=== PATIENT | female | born 1960 | race Caucasian/White ===

== ENCOUNTER 2019-07-22 06:00 | Outpatient (RCR) | payer MEDICARE, MEDICAID, SELFPAY | END 2019-08-21 00:01 | LOC: SOT 06:00 | PROVIDERS: Family Provider Internal Medicine; Visit Provider Specialist | DX: M06.9 Rheumatoid arthritis, unspecified (principal); S62.623D Displaced fracture of middle phalanx of left middle finger, subsequent encounter for fracture with routine healing; X58.XXXD Exposure to other specified factors, subsequent encounter | CPT/HCPCS: 97110 ×3; 97140 ×3 ==

== ENCOUNTER 2019-08-22 06:00 | Outpatient (RCR) | payer MEDICARE, MEDICAID, SELFPAY | END 2019-09-12 23:00 | disposition home or self-care (01) | LOC: SOT 06:00 | PROVIDERS: Family Provider Internal Medicine; PCP Internal Medicine; Visit Provider Specialist | DX: S62.603D Fracture of unspecified phalanx of left middle finger, subsequent encounter for fracture with routine healing (principal); X58.XXXD Exposure to other specified factors, subsequent encounter | CPT/HCPCS: 97110; 97140 ==

== ENCOUNTER → 2019-09-26 10:37 | Outpatient (BNVA) | payer MEDICARE, MEDICAID, SELFPAY | PROVIDERS: Family Provider Internal Medicine; PCP Internal Medicine; Referring Provider Internal Medicine Rheumatology; Visit Provider Internal Medicine Rheumatology | DX: M05.741 Rheumatoid arthritis with rheumatoid factor of right hand without organ or systems involvement (principal); Z79.899 Other long term (current) drug therapy; Z11.59 Encounter for screening for other viral diseases; M05.742 Rheumatoid arthritis with rheumatoid factor of left hand without organ or systems involvement | CPT/HCPCS: 36415; 99214 ==

== ENCOUNTER 2019-09-26 13:23 | Outpatient (CLI) | payer MEDICARE, MEDICAID, SELFPAY ==
--- NOTE | 2019-09-26 13:43 | XR_ITS ---
WS: [id number] FOOT LEFT TECHNIQUE: 3 views of the left foot CLINICAL INFORMATION: arthritis COMPARISON: None. FINDINGS: No evidence of acute fracture or dislocation. Normal tarsal metatarsal alignment. Normal calcaneus. N ormal visualized talar dome. Osteopenia. IP joint narrowing with hammertoe deformities. Small periart icular erosion first proximal phalanx XR/XR foot LT min 3V* [id number] IMPRESSION: 1. Osteopenia with IP joint narrowing and hammertoe deformities. 2. Small periarticular erosion first proximal phalanx. 3. No other significant findings.
--- NOTE | 2019-09-26 13:43 | XR_ITS ---
WS: [id number] FOOT RIGHT TECHNIQUE: 3 views of the right foot CLINICAL INFORMATION: arthritis COMPARISON: None. FINDINGS: Osteopenia. IP joint narrowing. No significant erosive changes. Normal metatarsals. Normal tarsal metatarsal alignment. No acute fractures. XR/XR foot RT min 3V* [id number] IMPRESSION: Mild osteopenia and IP joint narrowing. No significant erosive changes.
--- NOTE | 2019-09-26 13:43 | XR_ITS ---
WS: [id number] HAND RIGHT TECHNIQUE: 3 views of the right hand CLINICAL INFORMATION: arthritis COMPARISON: None. FINDINGS: Normal metacarpals. Normal MCP joint. Metacarpal heads are normal in appearance. Mild IP joint narrow ing with a few periarticular erosions. No evidence of acute fracture or dislocation. Radiocarpal joint: Mild narrowing Carpal bones: Normal. XR/XR hand RT min 3V* [id number] IMPRESSION: Mild IP joint narrowing with a few periarticular erosions.
== END 2019-09-26 13:24 | disposition home or self-care (01) ==
LOC: WPI 13:32
PROVIDERS: Family Provider Internal Medicine; PCP Internal Medicine; Visit Provider Internal Medicine Rheumatology
DX: M19.90 Unspecified osteoarthritis, unspecified site (principal); M85.841 Other specified disorders of bone density and structure, right hand; M85.871 Other specified disorders of bone density and structure, right ankle and foot; M85.872 Other specified disorders of bone density and structure, left ankle and foot; M05.741 Rheumatoid arthritis with rheumatoid factor of right hand without organ or systems involvement; M05.742 Rheumatoid arthritis with rheumatoid factor of left hand without organ or systems involvement; M05.9 Rheumatoid arthritis with rheumatoid factor, unspecified; Z11.59 Encounter for screening for other viral diseases; Z71.89 Other specified counseling; Z79.899 Other long term (current) drug therapy
CPT/HCPCS: 73130; 73630; 82306; 84450; 85651; 86140; 86704; 86803

== ENCOUNTER → 2019-11-15 10:57 | Outpatient (BNVA) | payer MEDICARE, MEDICAID, SELFPAY | PROVIDERS: Family Provider Internal Medicine; PCP Internal Medicine; Visit Provider Internal Medicine Rheumatology | DX: M05.9 Rheumatoid arthritis with rheumatoid factor, unspecified (principal); Z79.899 Other long term (current) drug therapy; Z11.59 Encounter for screening for other viral diseases | CPT/HCPCS: 36415; 80076; 82565; 85025; 85651; 86140 ==

== ENCOUNTER → 2019-11-15 10:58 | Outpatient (BNVA) | payer MEDICARE, MEDICAID, SELFPAY | PROVIDERS: Family Provider Internal Medicine; PCP Internal Medicine; Visit Provider Internal Medicine Rheumatology | DX: M05.9 Rheumatoid arthritis with rheumatoid factor, unspecified (principal); Z79.899 Other long term (current) drug therapy; Z11.59 Encounter for screening for other viral diseases | CPT/HCPCS: 85025 ==

== ENCOUNTER 2020-02-04 13:45 | Outpatient (CLI) | payer MEDICARE, MEDICAID, SELFPAY ==
[2020-02-04 14:07] VITALS: BP 116/74; PULSE 93; RESP 18; TEMP 36.6; O2SAT 98
[2020-02-04 15:35] VITALS: BP 120/74; PULSE 92; RESP 16; TEMP 36.6; O2SAT 97
== END 2020-02-04 13:46 | disposition home or self-care (01) ==
LOC: RHEOACUTE 13:48
PROVIDERS: Family Provider Internal Medicine; PCP Internal Medicine; Visit Provider Internal Medicine Rheumatology
DX: Z79.899 Other long term (current) drug therapy (principal); M05.741 Rheumatoid arthritis with rheumatoid factor of right hand without organ or systems involvement; M05.742 Rheumatoid arthritis with rheumatoid factor of left hand without organ or systems involvement
CPT/HCPCS: 36415; 80076; 82565; 85025; 85651; 86140; 96365; J1602

== ENCOUNTER 2020-02-12 09:12 | Outpatient (CLI) | payer MEDICARE, MEDICAID, SELFPAY ==
--- NOTE | 2020-02-12 09:15 | CT_ITS ---
WS: [id number] CT LUNG CANCER SCREENING DLP: 86.7 mGy.cm DIvol: 2.43 mGy CLINICAL INFORMATION SCREENING VISIT: Baseline COMPARISON: None available. FINDINGS Diagnostic quality: Satisfactory Comments: None. Lung Nodules: No pulmonary nodules, groundglass attenuation or endobronchial lesions are identified. Lungs: Marked pulmonary hyperexpansion from emphysema. There is very minimal peripheral interstitial thickening. No pleural effusion. Heart: Normal size heart with no pericardial effusion. Other findings: Mild atherosclerosis thoracic aorta. T7 Schmorl's node. CT/CT lung screening [id number] IMPRESSION: LUNG-RADS: 1-Negative FOLLOW UP: 12 Month: Continue annual screening with LDCT
== END 2020-02-12 09:13 | disposition home or self-care (01) ==
LOC: CT 09:13
PROVIDERS: PCP Internal Medicine; Visit Provider Internal Medicine
DX: Z12.2 Encounter for screening for malignant neoplasm of respiratory organs (principal); F17.210 Nicotine dependence, cigarettes, uncomplicated
CPT/HCPCS: G0297

== ENCOUNTER 2020-03-04 09:54 | Outpatient (CLI) | payer MEDICARE, MEDICAID, SELFPAY ==
[2020-03-04 10:35] VITALS: BP 115/84; PULSE 76; RESP 16; TEMP 36.7; O2SAT 98
[2020-03-04 11:57] VITALS: BP 126/84; PULSE 75; O2SAT 97
== END 2020-03-04 09:55 | disposition home or self-care (01) ==
LOC: RHEOACUTE 09:55
PROVIDERS: PCP Internal Medicine; Visit Provider Internal Medicine Rheumatology
DX: M05.79 Rheumatoid arthritis with rheumatoid factor of multiple sites without organ or systems involvement (principal)
CPT/HCPCS: 96365; J1602

== ENCOUNTER → 2020-03-26 12:48 | Outpatient (BNVA) | payer MEDICARE, MEDICAID, SELFPAY | PROVIDERS: PCP Internal Medicine; Visit Provider Internal Medicine Rheumatology | DX: M05.79 Rheumatoid arthritis with rheumatoid factor of multiple sites without organ or systems involvement (principal); Z79.899 Other long term (current) drug therapy; F17.210 Nicotine dependence, cigarettes, uncomplicated | CPT/HCPCS: 36415; 80076; 82565; 85025; 85651; 86140; 99214 ==

== ENCOUNTER → 2020-06-06 10:33 | Outpatient (BNVA) | payer MEDICARE, MEDICAID, SELFPAY | PROVIDERS: PCP Internal Medicine; Visit Provider Internal Medicine | DX: Z11.59 Encounter for screening for other viral diseases (principal) | CPT/HCPCS: 87635 ==

== ENCOUNTER 2020-06-11 11:00 | Outpatient (CLI) | payer MEDICARE, MEDICAID, SELFPAY ==
--- NOTE | 2020-06-11 13:10 | PFTS_ITS ---
Date of Study:06/11/20 Date of Dictation: 06/12/2020 MECHANICS: Forced vital capacity (FVC) is normal Forced expiratory volume in one second (FEV1) is normal FEV1/FVC is normal FEF 25-75% is reduced 37% suggestive of small airway obstruction No significant response to bronchodilator FLOW VOLUME LOOP: Scooping of expiratory limb suggestive of small airway obstruction . LUNG VOLUMES: Not measured DIFFUSING CAPACITY FOR CARBON MONOXIDE: Not measured . INTERPRETATION: The spirometry performed is consistent with airway obstruction with no significant response to bronchodilators. However this does not preclude bronchodilator use if clinically indicated. Correlate clinically MTDD
== END 2020-06-11 11:01 | disposition home or self-care (01) ==
LOC: RT 11:03
PROVIDERS: PCP Internal Medicine; Visit Provider Internal Medicine
DX: J44.9 Chronic obstructive pulmonary disease, unspecified (principal)
CPT/HCPCS: 94060; J7611

== ENCOUNTER → 2020-06-17 14:39 | Outpatient (BNVA) | payer MEDICARE, MEDICAID, SELFPAY | PROVIDERS: PCP Internal Medicine; Visit Provider Internal Medicine Rheumatology | DX: M05.79 Rheumatoid arthritis with rheumatoid factor of multiple sites without organ or systems involvement (principal); Z79.899 Other long term (current) drug therapy; Z78.0 Asymptomatic menopausal state; F17.210 Nicotine dependence, cigarettes, uncomplicated; Z79.52 Long term (current) use of systemic steroids; Z13.820 Encounter for screening for osteoporosis | CPT/HCPCS: 99214 ==

== ENCOUNTER 2020-10-15 14:57 | Outpatient (CLI) | payer MEDICARE, MEDICAID, SELFPAY ==
--- NOTE | 2020-10-15 15:03 | XR_ITS ---
WS: [id number] DEXA (DUAL ENERGY X-RAY ABSORPTIOMETRY) Bone mineral density was performed using a Personally machine. HISTORY: Asymptomatic POSTMENOPAUSAL STATUS COMPARISON: None available. Lumbar spine BMD (L1-L4): 0.770 g/cm2 T score: -3.4 Z score: -2.4 Total hip BMD: Left: 0.769 g/cm2. T score: -1.9 Z score: -1.1 Right: 0.757 g/cm2. T score: -2.0 Z score: -1.2 10 year probability of a major osteoporotic fracture is 24%. XR/XR DEXA axial skeleton* [id number] IMPRESSION: OSTEOPOROSIS based upon the WHO classification for females.
== END 2020-10-15 14:58 | disposition home or self-care (01) ==
PROVIDERS: PCP Internal Medicine; Visit Provider Internal Medicine
DX: Z78.0 Asymptomatic menopausal state (principal); M81.0 Age-related osteoporosis without current pathological fracture
CPT/HCPCS: 77080

== ENCOUNTER → 2020-11-03 13:31 | Outpatient (BNVA) | payer MEDICARE, MEDICAID, SELFPAY | PROVIDERS: PCP Internal Medicine; Visit Provider Internal Medicine Rheumatology | DX: M05.79 Rheumatoid arthritis with rheumatoid factor of multiple sites without organ or systems involvement (principal); Z79.899 Other long term (current) drug therapy; M81.0 Age-related osteoporosis without current pathological fracture; F17.210 Nicotine dependence, cigarettes, uncomplicated | CPT/HCPCS: 99214 ==

== ENCOUNTER 2020-12-05 20:30 | Emergency (ER) | payer MEDICARE, MEDICAID, SELFPAY ==
[2020-12-05 20:34] VITALS: BP 121/89; PULSE 104; RESP 18; TEMP 36.6; O2SAT 97; BMI 24.2
--- NOTE | 2020-12-05 20:40 | ED_ITS ---
HPI - GI Bleed General: Chief complaint: GI Bleed Stated complaint: rectal bleeding Time Seen by Provider: 12/05/20 20:31 Source: patient and EMS Mode of arrival: EMS Limitations: no limitations History of Present Illness: HPI Narrative: 60-year-old female states that over the last 2 to 3 hours been having abdominal cramping and feeling quite nauseous. States she felt her legs give to vomit. She states that she did go to the bathroom and had a mucousy-like stool that had some bright red blood in it. States she continued to have cramping her abdomen feeling like she is in the vomit. She denies any lightheadedness. Denies any fever. Denies any worsening improving factors. She denies any pain just a cramping feeling. Associated symptoms: Reports nausea; Denies abdominal pain, chills, easy bruising, fever(s), headache(s), rash or vomiting Review of Systems Const: Denies: fever(s), chills, body aches or change in appetite Eyes: Denies: blurry vision or eye discomfort ENMT: Denies: throat pain or dental pain Card: Denies: chest pain Resp: Denies: dyspnea GI: Reports: nausea and hematochezia; Denies: abdominal pain, vomiting or diarrhea : Denies: dysuria Musc: Denies: neck pain or back pain Skin/Breast: Denies: rash Neuro: Denies: headache(s) Psych: Denies: depression Alejandro/Lymph: Denies: easy bruising All/Imm: Denies: urticaria PFSH ED PFSH: Medical History (Updated 12/05/20 @ 23:11 by Daren Harrison MD) Chronic intermittent steroid use Encounter for osteoporosis screening in asymptomatic postmenopausal patient Encounter for screening for other viral diseases High risk medication use Immunization counseling Post-menopausal osteoporosis Rheumatoid arthritis with rheumatoid factor Seropositive rheumatoid arthritis of multiple sites Shortness of breath Surgical History H/O arthroplasty H/O tubal ligation H/O: hysterectomy History of repair of hiatal hernia Hx of cholecystectomy Family History Other CAD (coronary artery disease) Diabetes Hypertension Lung disease Rheumatoid arthritis Stroke Denies family history of Systemic lupus erythematosus (SLE) in adult Cancer Social History Smoking and tobacco status: current every day smoker cigarettes Packs smoked per day: 0.5 Alcohol intake: unknown Lives independently: Yes Marital status: Current occupational status: disabled History of recent travel: No (last ask 05/03/19) Physical Exam Const: COMMON NORMALS: no acute distress, patient oriented x3 and healthy appearing HENMT: COMMON NORMALS: normocephalic and atraumatic HEAD & SCALP: normocephalic and atraumatic Eye: COMMON NORMALS: Equal, round and reactive pupils present and EOMs intact bilaterally PUPIL: Yes Equal, round and reactive pupils present Neck/C-Spine: COMMON NORMALS: full ROM and supple Chest: COMMONS NORMALS: normal inspection of the chest and normal palpation of entire chest wall Resp: COMMON NORMALS: normal respiratory effort, No retractions, No use of accessory muscles and clear to auscultation bilaterally AUSCULTATION: clear to auscultation bilaterally Cardio: COMMON NORMALS: regular rate, regular rhythm and No murmurs present (Cardio) RATE: regular rate RHYTHM: regular rhythm GI: COMMON NORMALS: Normal to inspection, nondistended, normoactive bowel sounds present, Soft to palpation, non-tender and no masses PALPATION: Yes Soft to palpation Extremity: COMMON NORMALS: normal to inspection and full ROM Neuro: COMMON NORMALS: patient oriented x3, moves all extremities and no focal motor deficits Psych: COMMON NORMALS: mental status grossly normal, Normal thought process present and cooperative THOUGHT PROCESS: Normal thought process present Skin: COMMON NORMALS: no rashes or lesions noted and no wounds GENERAL SKIN EXAM: no rashes or lesions noted Course Vital Signs: Vital signs: Vital Signs Temperature 97.9 F 12/05/20 20:34 Pulse Rate 104 H 12/05/20 20:34 Respiratory Rate 18 12/05/20 20:34 Blood Pressure 121/89 12/05/20 20:34 Pulse Oximetry 97 12/05/20 20:34 MDM - GI Bleed MDM Narrative: Medical decision making narrative: Patient presents here with a lower GI bleed. Patient's rectal exam here showed a very small amount of blood. Her hemoglobin here is normal. She had no more bloody bowel movements. Her CT scan showed no acute findings. She is stable for discharge will prescribe her medicine for nausea. She is to follow-up with surgery outpatient return to ER if worsening. She is return if she has any more large bloody bowel movements. She understands agrees this plan. Lab Data: Labs: Lab Results 12/05/20 12/05/20 12/05/20 Range/Units 21:15 21:15 21:15 WBC 7.1 (4.0-10.0) 10^3/ uL RBC 3.68 L (4.1-5.3) 10^6/u L Hgb 12.3 (11.5-15.3) g/dL Hct 36.9 L (37.0-47.0) % MCV 100.3 H (81-99) fL MCH 33.4 (28.0-34.0) pg MCHC 33.3 (30.0-36.0) g/dL RDW 12.8 (12.1-15.1) % Plt Count 314 (130-400) 10^3/c mm MPV 10.1 (7.4-10.4) fL Neut % (Auto) 47.1 % Lymph % (Auto) 45.0 % Wilkes % (Auto) 6.8 % Eos % (Auto) 0.4 % Baso % (Auto) 0.6 % Neut # (Auto) 3.32 (1.8-7.7) 10^3/u L Lymph # (Auto) 3.2 (0.8-4.8) 10^3/u L Wilkes # (Auto) 0.5 (0.2-0.9) 10^3/u L Eos # (Auto) 0.0 (0.0-0.8) 10^3/u L Baso # (Auto) 0.0 (0.0-0.1) 10^3/u L Nucleated RBC % (a uto) 0 % Nucleated RBCs # 0.0 /100WBC PT 12.80 (12.1-14.9) SECO NDS INR 0.94 (0.8-1.2) Sodium 140 (136-145) mmol/L Potassium 3.8 (3.5-5.1) mmol/L Chloride 104 (98-107) mmol/L Carbon Dioxide 25 (22-29) mmol/L Anion Gap 14.8 (5-19) BUN 10 (6-20) mg/dL Creatinine 0.8 (0.5-0.9) mg/dL GFR Calculation 73.7 L (90-130) mL/min Glucose 125 H (65-115) mg/dL Calculated Osmolal ity 291 (285-295) mOsm/k g Calcium 8.5 (8.5-10.5) mg/dL Total Bilirubin 0.3 (0.15-1.2) mg/dL AST 28 (0-32) U/L ALT 19 (0-33) U/L Alkaline Phosphata se 99 (35-105) IU/L Total Protein 6.8 (6.6-8.7) g/dL Albumin 4.2 (3.5-5.2) g/dL Globulin 2.6 (1.3-4.6) g/dL Lipase 30 (13-60) U/L Imaging Data^: CT Abd/Pel: Radiologist's impression: [place] [address] CT Scan Report Signed Patient: Tari Mendoza Unit #: [id number] : 1960 Age/Sex: 60 / F ADM Date: 12/05/20 Loc: ER Room/Bed: Attending Dr: Ordering Provider/Ordering MD: Daren Harrison MD Date of Service: 12/05/20 Procedure(s): CT abdomen pelvis w con* [id number] Accession Number(s): [id number] Report Number: [id number] PROCEDURE INFORMATION: Exam: CT Abdomen And Pelvis With Contrast Exam date and time: 12/05/2020 10:21 PM Age: 60 years old Clinical indication: Nausea and vomiting and other: Rectal bleed; Prior surgery; Surgery type: Hiatal hernia. Gb. Tubal. Hysterectomy. ; Patient HX: N/v/d with rectal bleed. ; Additional info: Abd pain TECHNIQUE: Imaging protocol: Computed tomography of the abdomen and pelvis with contrast. Radiation optimization: All CT scans at this facility use at least one of these dose optimization techniques: automated exposure control; mA and/or kV adjustment per patient size (includes targeted exams where dose is matched to clinical indication); or iterative reconstruction. Contrast material: OMNI 300; Contrast volume: 95 ml; Contrast route: INTRAVENOUS (IV); COMPARISON: CR Hip 2-3v LEFT wwo Pelv* [id number] 06/15/2017 1:27 PM RADIATION DOSE METRICS: Total DLP (mGy-cm): 1252.73 FINDINGS: Mediastinal space: Status post hiatal hernia repair. Liver: Normal. No mass. Gallbladder and bile ducts: Status post cholecystectomy. There is mild intra and extrahepatic biliary dilatation. Common bile duct measures 8.5 mm near the pancreatic head. It tapers to normal caliber near the ampulla. Pancreas: Normal. No ductal dilation. Spleen: Normal. No splenomegaly. Adrenal glands: Normal. No mass. Kidneys and ureters: Normal. No hydronephrosis. Stomach and bowel: Few diverticula are seen on the sigmoid colon. There are no inflammatory changes seen to suggest diverticulitis. There is focal narrowing seen at the level of the rectosigmoid junction. This may represent physiologic narrowing although fixed narrowing cannot be entirely excluded. Sigmoidoscopy is suggested as follow-up. Appendix: No evidence of appendicitis. Intraperitoneal space: Unremarkable. No free air. No significant fluid collection. Vasculature: Unremarkable. No abdominal aortic aneurysm. Lymph nodes: Unremarkable. No enlarged lymph nodes. Urinary bladder: Unremarkable as visualized. Reproductive: Status post hysterectomy. Bones/joints: Unremarkable. No acute fracture. Soft tissues: Unremarkable. CT/CT abdomen pelvis w con* [id number] IMPRESSION: 1. There are no acute abdominal findings. 2. Mild diverticulosis of the sigmoid colon. 3. There is focal narrowing at the rectosigmoid junction possibly representing physiologic narrowing although a fixed narrowing cannot be entirely excluded. Sigmoidoscopy is suggested as follow-up. 4. Mild intra and extrahepatic biliary dilatation possibly compensatory to cholecystectomy. Discharge Plan Discharge Patient Disposition: Home Clinical Impression: Acute lower GI bleeding Condition: Stable Prescriptions: New ondansetron 4 mg tablet,disintegrating 4 mg PO Q6H PRN (Reason: nausea and vomiting) Qty: 14 RF: 0 Levsin 0.125 mg tablet 0.125 mg PO Q12H PRN (Reason: dyspepsia) Qty: 14 RF: 0 No Action prednisone 10 mg tablet 10 mg PO BID Qty: 20 RF: 2 alendronate [Fosamax] 70 mg tablet 70 mg PO .every week RF: 0 cholecalciferol (vitamin D3) 50 mcg (2,000 unit) tablet 2,000 unit PO DAILY Qty: 30 RF: 3 Rinvoq 15 mg tablet extended release 24 hr 15 mg PO DAILY Qty: 30 RF: 3 pantoprazole 40 mg tablet,delayed release (DR/EC) 40 mg PO DAILY Qty: 30 RF: 3 topiramate 200 mg tablet 100 mg PO BID RF: 0 folic acid 1 mg tablet 1 mg PO DAILY Qty: 30 RF: 2 Probiotic 1 tab PO DAILY RF: 0 Discharge Orders: Discharge ED (Routine); Ordered 12/05/20 Ordered By: Daren Harrison Referrals: Yessica Travis MD [Primary Care Provider] - Pillo Brownlee MD [Physician] - 1-3 days Discharge Diet: Advance as tolerated Discharge Activity: Resume usual activity Patient Instructions: Rectal Bleeding (ED) Coding Level of Care Code ED Computer Education Professor for Chg Fwd Exam Comprehensive
[2020-12-05] MEDS: sodium chloride 0.9% 1,000 ML 999 ML IV (20:54)
[2020-12-05] MEDS: ondansetron 2 mg/ML SDV 2 mL 4 MG IVP (20:55)
[2020-12-05 21:28] LABS: Basophils % 0.6 %; Eosinophils % 0.4 %; Hematocrit 36.9 % (37.0-47.0); Hemoglobin 12.3 g/dL (11.5-15.3); Lymphocytes # 3.2 10^3/uL (0.8-4.8); Mean Corpuscular HGB Conc 33.3 g/dL (30.0-36.0); Mean Corpuscular Hemoglobin 33.4 pg (28.0-34.0); Mean Corpuscular Volume 100.3 fL (81-99); Mean Platelet Volume 10.1 fL (7.4-10.4); Monocytes # 0.5 10^3/uL (0.2-0.9); Monocytes % 6.8 %; Neutrophils # 3.32 10^3/uL (1.8-7.7); Neutrophils % 47.1 %; Nucleated Red Blood Cells % 0 %; Platelet Count 314 10^3/cmm (130-400); Red Blood Count 3.68 10^6/uL (4.1-5.3); Red Cell Distribution Width 12.8 % (12.1-15.1); White Blood Count 7.1 10^3/uL (4.0-10.0)
[2020-12-05 21:37] LABS: INR 0.94 (0.8-1.2)
[2020-12-05 21:49] LABS: Alanine Aminotransferase 19 U/L (0-33); Albumin Level 4.2 g/dL (3.5-5.2); Alkaline Phosphatase 99 IU/L (35-105); Anion Gap 14.8 (5-19); Aspartate Amino Transferase 28 U/L (0-32); Blood Urea Nitrogen 10 mg/dL (6-20); Calcium 8.5 mg/dL (8.5-10.5); Carbon Dioxide 25 mmol/L (22-29); Chloride 104 mmol/L (98-107); Globulin 2.6 g/dL (1.3-4.6); Glomerular Filtration Rate 73.7 mL/min (90-130); Glucose 125 mg/dL (65-115); Lipase 30 U/L (13-60); Osmolality Calculated 291 mOsm/kg (285-295); Potassium 3.8 mmol/L (3.5-5.1); Sodium 140 mmol/L (136-145); Total Bilirubin 0.3 mg/dL (0.15-1.2); Total Protein 6.8 g/dL (6.6-8.7)
--- NOTE | 2020-12-05 21:59 | CTR_ITS ---
PROCEDURE INFORMATION: Exam: CT Abdomen And Pelvis With Contrast Exam date and time: 12/05/2020 10:21 PM Age: 60 years old Clinical indication: Nausea and vomiting and other: Rectal bleed; Prior surgery; Surgery type: Hiatal hernia. Gb. Tubal. Hysterectomy. ; Patient HX: N/v/d with rectal bleed. ; Additional info: Abd pain TECHNIQUE: Imaging protocol: Computed tomography of the abdomen and pelvis with contrast. Radiation optimization: All CT scans at this facility use at least one of these dose optimization techniques: automated exposure control; mA and/or kV adjustment per patient size (includes targeted exams where dose is matched to clinical indication); or iterative reconstruction. Contrast material: OMNI 300; Contrast volume: 95 ml; Contrast route: INTRAVENOUS (IV); COMPARISON: CR Hip 2-3v LEFT wwo Pelv* [id number] 06/15/2017 1:27 PM RADIATION DOSE METRICS: Total DLP (mGy-cm): 1252.73 FINDINGS: Mediastinal space: Status post hiatal hernia repair. Liver: Normal. No mass. Gallbladder and bile ducts: Status post cholecystectomy. There is mild intra and extrahepatic biliary dilatation. Common bile duct measures 8.5 mm near the pancreatic head. It tapers to normal caliber near the ampulla. Pancreas: Normal. No ductal dilation. Spleen: Normal. No splenomegaly. Adrenal glands: Normal. No mass. Kidneys and ureters: Normal. No hydronephrosis. Stomach and bowel: Few diverticula are seen on the sigmoid colon. There are no inflammatory changes seen to suggest diverticulitis. There is focal narrowing seen at the level of the rectosigmoid junction. This may represent physiologic narrowing although fixed narrowing cannot be entirely excluded. Sigmoidoscopy is suggested as follow-up. Appendix: No evidence of appendicitis. Intraperitoneal space: Unremarkable. No free air. No significant fluid collection. Vasculature: Unremarkable. No abdominal aortic aneurysm. Lymph nodes: Unremarkable. No enlarged lymph nodes. Urinary bladder: Unremarkable as visualized. Reproductive: Status post hysterectomy. Bones/joints: Unremarkable. No acute fracture. Soft tissues: Unremarkable. CT/CT abdomen pelvis w con* [id number] IMPRESSION: 1. There are no acute abdominal findings. 2. Mild diverticulosis of the sigmoid colon. 3. There is focal narrowing at the rectosigmoid junction possibly representing physiologic narrowing although a fixed narrowing cannot be entirely excluded. Sigmoidoscopy is suggested as follow-up. 4. Mild intra and extrahepatic biliary dilatation possibly compensatory to cholecystectomy. Radiation Dose CTDIVOL = (mGy): DLP = 1252.73 (mGy-cm)
[2020-12-05] MEDS: morphine 4 mg/mL SDV 1 mL IVP (22:23)
[2020-12-05] MEDS: iohexol 300 mg/mL 100 mL Btl IV (22:40)
[2020-12-05 23:53] VITALS: BP 113/74; PULSE 80; RESP 18; O2SAT 98
--- NOTE | 2020-12-08 16:38 | DCPLANNER ---
plant operations manager had message to schedule a follow up appointment for patient with general surgery. plant operations manager emailed patients information to both Tiffany and Mackenzie at [facility] General Surgery. Patients information will be printed and reviewed. Clinic will call patient with appointment information.
--- NOTE | 2020-12-12 14:10 | DCPLANNER ---
Patient has a follow up appointment scheduled for Tuesday, December 15, 2020 at 9:[address] Ortega at [facility] General Surgery. Clinic will call patient with appointment information.
--- NOTE | 2020-12-16 15:07 | DCPLANNER ---
Patient had a follow up appointment scheduled for 12.15.[address] Brownlee at General Surgery - patient did attend appointment.
== END 2020-12-05 23:53 | disposition home or self-care (01) ==
PROVIDERS: Emergency Provider Emergency Medicine; PCP Internal Medicine
DX: K92.2 Gastrointestinal hemorrhage, unspecified (principal); F17.210 Nicotine dependence, cigarettes, uncomplicated
CPT/HCPCS: 74177; 80053; 83690; 85025; 85610; 96361; 96374; 96375; 99284; J2270; J2405; J7030; Q9967

== ENCOUNTER 2020-12-09 11:21 | Outpatient (CLI) | payer MEDICARE, MEDICAID, SELFPAY ==
--- NOTE | 2020-12-09 11:25 | MR_ITS ---
WS: [id number] MRI HEAD WITH CONTRAST WITH ATTENTION TO THE INTERNAL AUDITORY CANALS TECHNIQUE: Sagittal T1, T2 axial, T2 axial flair, axial susceptibility weighted imaging, axial diffus ion weighted images, and coronal T2 images were obtained. Pre and post T1 axial and post T1 coronal i mages. ADC and FSPGR images. Post gadolinium images with attention to the internal auditory canals. A xial fiesta imaging. CLINICAL INFORMATION: UNSPEC HEARING LOSS LEFT EAR;TINNITUS BILATERAL COMPARISON: MRI 3 018 FINDINGS: No evidence of restricted diffusion to suggest acute ischemia. Mild small vessel changes. Mild parenc hymal volume loss. Small vessel changes in the pinky. Normal posterior fossa. Normal vascular flow voi ds at the skull base. No extra-axial fluid collections. Paranasal sinuses and mastoid air cells are w ell aerated. Cerebellar tonsillar ectopia unchanged since 2018. No hemosiderin on the susceptibly weighted images. Proximal 7th and 8th cranial nerves are normal. Normal trigeminal nerve root entry zones. No evidenc e of enhancing IAC or CP angle mass. Normal cavernous sinuses and Meckel's cave. No abnormal intracra nial enhancement. Normal dural venous sinuses. MR/MR iac's wo/w con* [id number] IMPRESSION: 1. No evidence of restricted diffusion to suggest acute ischemia. 2. Proximal 7th and 8th cranial nerves are normal in appearance. No evidence o f enhancing IAC or CP angle mass. 3. Mild small vessel changes. Mild parenchymal volume loss. 4. Paranasal sinuses and mastoid air cells are well aerated. 5. Normal optic chiasm and pituitary infundibulum.
[2020-12-09] MEDS: gadobenate dimeglumine 20 mL vial IV (12:29)
== END 2020-12-09 11:22 | disposition home or self-care (01) ==
LOC: RADSHAW 11:24
PROVIDERS: PCP Internal Medicine; Visit Provider Otolaryngology
DX: H93.13 Tinnitus, bilateral (principal); H91.92 Unspecified hearing loss, left ear
CPT/HCPCS: 70553; A9577

== ENCOUNTER → 2020-12-31 08:10 | Outpatient (BNVA) | payer MEDICARE, MEDICAID, SELFPAY | PROVIDERS: PCP Internal Medicine; Visit Provider Surgery | DX: K62.5 Hemorrhage of anus and rectum (principal) | CPT/HCPCS: 87635 ==

== ENCOUNTER 2021-01-05 06:27 | Day surgery (SDC) | payer MEDICARE, MEDICAID, SELFPAY ==
[2021-01-01 13:24] VITALS: BMI 23.3
[2021-01-05 06:47] VITALS: BP 118/84; PULSE 100; RESP 18; TEMP 37.1; O2SAT 95
[2021-01-05] MEDS: sodium chloride 0.9% 1,000 ML 30 ML IV (06:48)
--- NOTE | 2021-01-05 06:55 | W.PM.OPSUD ---
Surgery/Procedure H&P Update DATE OF PROCEDURE: January 05, 2021 DATE H&P PERFORMED: 12/15/20 H&P UPDATE INFORMATION: I have reviewed H&P completed within last 30 days, I have examined patient prior to procedure and No changes to prior documentation PREOP DIAGNOSIS: Bleeding per rectum PRIMARY INDICATION FOR PROCEDURE: The same PLANNED PROCEDURE: Operation Date: 01/05/21 07:30 Proposed Procedures p EGD/colon [id number] 24502 K62.5(Not Applicable) - Pillo Brownlee MD s Colonoscopy(Not Applicable) - Pillo Brownlee MD
--- NOTE | 2021-01-05 07:17 | ANES.PREANE2 ---
Pre-Anesthetic Assessment Pre-Anesthetic Assessment: Height/Weight: Height 1.68 m Weight 65.771 kg Temp Pulse Resp BP Pulse Ox 98.8 F 100 18 118/84 95 01/05/21 06:47 01/05/21 06:47 01/05/21 06:47 01/05/21 06:47 01/05/21 06:47 Preop Diagnosis: Bleeding per rectum Proposed Procedure: Operation Date: 01/05/21 07:30 Proposed Procedures p EGD/colon [id number] K62.5(Not Applicable) - Pillo Brownlee MD s Colonoscopy(Not Applicable) - Pillo Brownlee MD Was Beta Maritza taken within 24 hours: N/A Was Clonidine taken within 24 hours: N/A Last intake: Intake Last Liquid Date 01/04/21 Last Liquid Time 23:00 Last Solid Date 01/03/21 Social: Social History: Tobacco and No alcohol Exam: Pre-Anes Outpt Exam: alert, oriented x 3 and regular rate & rhythm Airway: Submandibular: WNL Cervical ROM: WNL MP: 2 Dentition: False Pulmonary: Pulmonary: COPD GI: GI: GERD Musc/skel: Musc/skel: RA Anesthetic Plan: ASA status: 3 Anesthesia: MAC Risk of > 500 ml blood loss (7ml/kg in children): No Meds/Allergies Current Medications: Current Medications Generic Name Dose Route Start Last Admin Trade Name Freq PRN Reason Stop Dose Admin Sodium Chloride 1,000 mls @ 30 ml s/hr 01/05/21 06:45 01/05/21 06:48 Sodium Chloride 0.9% IV 30 mls/hr .Q24H LEROY Administration PFSH Anesthesia PFSH: Medical History Chronic intermittent steroid use Encounter for osteoporosis screening in asymptomatic postmenopausal patient Encounter for screening for other viral diseases High risk medication use Immunization counseling Post-menopausal osteoporosis Rheumatoid arthritis with rheumatoid factor Seropositive rheumatoid arthritis of multiple sites Shortness of breath Surgical History H/O arthroplasty H/O tubal ligation H/O: hysterectomy History of repair of hiatal hernia Hx of cholecystectomy Family History Other CAD (coronary artery disease) Diabetes Hypertension Lung disease Rheumatoid arthritis Stroke Denies family history of Systemic lupus erythematosus (SLE) in adult Cancer Social History Smoking and tobacco status: current every day smoker cigarettes Packs smoked per day: 0.5 Alcohol intake: unknown Lives independently: Yes Marital status: Current occupational status: disabled History of recent travel: No (last ask 05/03/19) Data Anesthesia Cardiac Studies: No Data to Display
[2021-01-05 08:12] VITALS: BP 100/76; PULSE 80; RESP 18; TEMP 36.4; O2SAT 100
[2021-01-05 08:23] VITALS: BP 133/70; PULSE 77; RESP 18; O2SAT 100
--- NOTE | 2021-01-05 09:05 | ANE.PACU2 ---
Inpatient post-anesthesia follow up: Airway intact: Yes Vital signs: Temperature 97.6 F Pulse Rate 77 Respiratory Rate 18 Blood Pressure 133/70 Pulse Oximetry 100 Oxygen Delivery Me thod Room Air Oxygen Flow Rate Fraction of Inspir ed Oxygen Hydration adequate: Yes Mental status: Baseline
[2021-01-06 16:24] LABS: H. Pylori / CLO Test Negative
== END 2021-01-05 08:38 | disposition home or self-care (01) ==
PROVIDERS: PCP Internal Medicine; Visit Provider Surgery
PROC: 0DJ08ZZ Inspection of Upper Intestinal Tract, Via Natural or Artificial Opening Endoscopic (ICD-10-PCS; CPT 43235; principal; 2021-01-05 07:30)
PROC: 0DJD8ZZ Inspection of Lower Intestinal Tract, Via Natural or Artificial Opening Endoscopic (ICD-10-PCS; CPT 45330; 2021-01-05 07:30)
DX: K62.5 Hemorrhage of anus and rectum (principal); K21.00 Gastro-esophageal reflux disease with esophagitis, without bleeding; K29.70 Gastritis, unspecified, without bleeding; J44.9 Chronic obstructive pulmonary disease, unspecified; M06.9 Rheumatoid arthritis, unspecified; F17.210 Nicotine dependence, cigarettes, uncomplicated; Z82.49 Family history of ischemic heart disease and other diseases of the circulatory system; Z83.3 Family history of diabetes mellitus
CPT/HCPCS: 43239; 45330; 87077; 96360; 96361; J2704; J7030

== ENCOUNTER 2021-01-08 09:48 | Outpatient (CLI) | payer MEDICARE, MEDICAID, SELFPAY ==
--- NOTE | 2021-01-08 10:00 | FL_ITS ---
WS: [id number] Barium swallow and esophagram, 01/08/2021 Clinical Data: K29.70 - Gastritis, unspecified, without bleeding Comparison: None. Fluoroscopy time: 1.0 minutes. Findings: The patient swallowed the thick and thin barium, and it flowed through the hypopharynx without hesita tion. No stricture, mass, polyp or erosion was seen. The barium entered the esophagus and there was normal motility throughout. No hiatal hernia, strictur e, polyp, mass, erosion or ulcer was noted. No reflux was present. FL/FL barium swallow [id number] Impression: Normal esophagram.
== END 2021-01-08 09:49 | disposition home or self-care (01) ==
LOC: RADWPI 09:53
PROVIDERS: PCP Internal Medicine; Visit Provider Surgery
DX: K29.70 Gastritis, unspecified, without bleeding (principal)
CPT/HCPCS: 74220

== ENCOUNTER 2021-02-02 08:41 | Outpatient (CLI) | payer MEDICARE, MEDICAID, SELFPAY ==
--- NOTE | 2021-02-02 08:47 | FL_ITS ---
WS: [id number] Exam: FL barium enema w air* [id number] Date/Time of Exam: 02/02/2021 8:51 AM Reason For Exam: K62.5 - Hemorrhage of anus and rectum The colon is freely distensible. No evidence of mass or constricting lesion. There are several scatte red diverticuli in the sigmoid colon and splenic flexure. There was some mild spasm in the sigmoid co vinnie noted during fluoroscopy. The haustral pattern is well maintained. The colon is nondisplaced. Bar ium could not be refluxed into the terminal ileum. FL/FL barium enema w air* [id number] IMPRESSION: 1. Mild diverticulosis and spasm of the sigmoid colon. 2. No sign of colonic mass or constricting lesion.
== END 2021-02-02 08:42 | disposition home or self-care (01) ==
PROVIDERS: PCP Internal Medicine; Visit Provider Surgery
DX: K62.5 Hemorrhage of anus and rectum (principal); K57.30 Diverticulosis of large intestine without perforation or abscess without bleeding
CPT/HCPCS: 74280

== ENCOUNTER 2021-02-16 09:37 | Outpatient (CLI) | payer MEDICARE, MEDICAID, SELFPAY ==
--- NOTE | 2021-02-16 09:45 | CT_ITS ---
WS: [id number] LDCT LUNG CANCER SCREENING TECHNIQUE: Noncontrast CT of the chest with coronal and sagittal reformatted images. CLINICAL INFORMATION: NICOTINE DEPENDENCE COMPARISON: February 12, 2020 DLP: 55.38 mGy.cm DIvol: 1.[address] scans at [facility] use at least one of these dose optimization techniques: automat ed exposure control; mA and/or kV adjustment per patient size (includes targeted exams where dose is matched to clinical indication); or iterative reconstruction. FINDINGS: No suspicious pulmonary parenchymal opacities. Mild chronic emphysematous changes. No mediastinal or hilar lymphadenopathy. Aortic calcification. Adrenal glands are normal. Cholecystectomy clips. CT/CT lung screening [id number] IMPRESSION: LUNG-RADS: 1-Negative FOLLOW UP: 12 Month: Continue annual screening with LDCT
== END 2021-02-16 09:38 | disposition home or self-care (01) ==
PROVIDERS: PCP Internal Medicine; Visit Provider Internal Medicine
DX: Z12.2 Encounter for screening for malignant neoplasm of respiratory organs (principal); F17.218 Nicotine dependence, cigarettes, with other nicotine-induced disorders; I70.0 Atherosclerosis of aorta
CPT/HCPCS: 71271

== ENCOUNTER → 2021-03-05 10:52 | Outpatient (BNVA) | payer MEDICARE, MEDICAID, SELFPAY | PROVIDERS: PCP Internal Medicine; Visit Provider Internal Medicine Rheumatology | DX: M05.79 Rheumatoid arthritis with rheumatoid factor of multiple sites without organ or systems involvement (principal); M81.0 Age-related osteoporosis without current pathological fracture; Z79.899 Other long term (current) drug therapy; F17.210 Nicotine dependence, cigarettes, uncomplicated; Z71.89 Other specified counseling | CPT/HCPCS: 99214 ==

== ENCOUNTER → 2021-06-24 08:55 | Outpatient (BNVA) | payer MEDICARE, MEDICAID, SELFPAY | PROVIDERS: PCP Internal Medicine; Visit Provider Internal Medicine Rheumatology | DX: M05.79 Rheumatoid arthritis with rheumatoid factor of multiple sites without organ or systems involvement (principal); Z79.899 Other long term (current) drug therapy | CPT/HCPCS: 36415; 80076; 82565; 85025; 86140 ==

== ENCOUNTER → 2021-10-26 10:50 | Outpatient (BNVA) | payer MEDICARE, MEDICAID, SELFPAY | PROVIDERS: PCP Internal Medicine; Visit Provider Internal Medicine Rheumatology | DX: M05.79 Rheumatoid arthritis with rheumatoid factor of multiple sites without organ or systems involvement (principal); Z79.899 Other long term (current) drug therapy; M81.0 Age-related osteoporosis without current pathological fracture; Z71.89 Other specified counseling | CPT/HCPCS: 99214 ==

== ENCOUNTER 2022-02-08 11:24 | Outpatient (CLI) | payer MEDICARE, MEDICAID, SELFPAY ==
--- NOTE | 2022-02-08 11:39 | CT_ITS ---
WS: [id number] LDCT LUNG CANCER SCREENING TECHNIQUE: Noncontrast CT of the chest with coronal and sagittal reformatted images. CLINICAL INFORMATION: NICOTINE DEPENDENCE, CIGARETTES COMPARISON: February 16, 2021 DLP: 77.89 mGy.cm DIvol: Mean CTDIvol: 1.60 (mGy) All CT scans at [facility] use at least one of these dose optimization techniques: automat ed exposure control; mA and/or kV adjustment per patient size (includes targeted exams where dose is matched to clinical indication); or iterative reconstruction. FINDINGS: Moderate chronic emphysematous changes. No acute pulmonary infiltrates. No suspicious pulmonary paren chymal opacities. No focal pneumonia or pleural fluid. Mild aortic calcification. No mediastinal or h ilar lymphadenopathy. No axillary lymphadenopathy. Adrenal glands are normal. Cortical scarring LEFT upper pole. Postoperative cholecystectomy. Mild chr onic intrahepatic biliary ductal dilatation unchanged since December 06, [address] le[address] CT/CT lung screening [id number] IMPRESSION: LUNG-RADS: 1-Negative FOLLOW UP: 12 Month: Continue annual screening with LDCT
== END 2022-02-08 11:25 | disposition home or self-care (01) ==
PROVIDERS: PCP Internal Medicine; Visit Provider Internal Medicine
DX: Z12.2 Encounter for screening for malignant neoplasm of respiratory organs (principal); F17.210 Nicotine dependence, cigarettes, uncomplicated
CPT/HCPCS: 71271

== ENCOUNTER → 2022-02-17 10:52 | Outpatient (BNVA) | payer MEDICARE, MEDICAID, SELFPAY | PROVIDERS: PCP Internal Medicine; Visit Provider Internal Medicine Critical Care Medicine | DX: J44.9 Chronic obstructive pulmonary disease, unspecified (principal); F17.210 Nicotine dependence, cigarettes, uncomplicated | CPT/HCPCS: 99213 ==

== ENCOUNTER → 2022-02-24 13:47 | Outpatient (BNVA) | payer MEDICARE, MEDICAID, SELFPAY | PROVIDERS: PCP Internal Medicine; Visit Provider Internal Medicine Rheumatology | DX: M05.741 Rheumatoid arthritis with rheumatoid factor of right hand without organ or systems involvement (principal); M05.742 Rheumatoid arthritis with rheumatoid factor of left hand without organ or systems involvement; Z79.899 Other long term (current) drug therapy; M81.0 Age-related osteoporosis without current pathological fracture; Z71.89 Other specified counseling | CPT/HCPCS: 73630; 99204 ==

== ENCOUNTER → 2022-03-16 13:56 | Outpatient (BNVA) | payer MEDICARE, MEDICAID, SELFPAY | PROVIDERS: PCP Internal Medicine; Referring Provider Internal Medicine; Visit Provider Podiatrist Foot & Ankle Surgery | DX: M92.61 Juvenile osteochondrosis of tarsus, right ankle (principal); M79.671 Pain in right foot | CPT/HCPCS: 99203; 99204 ==

== ENCOUNTER 2022-03-16 15:12 | Outpatient (CLI) | payer MEDICARE, MEDICAID, SELFPAY | END 2022-03-16 15:13 | disposition home or self-care (01) | LOC: SPT 15:13 | PROVIDERS: PCP Internal Medicine; Visit Provider Podiatrist Foot & Ankle Surgery | DX: Z46.89 Encounter for fitting and adjustment of other specified devices (principal); M92.61 Juvenile osteochondrosis of tarsus, right ankle | CPT/HCPCS: 97760; 99203; 99204; L4397 ==

== ENCOUNTER → 2022-04-21 11:01 | Outpatient (BNVA) | payer MEDICARE, MEDICAID, SELFPAY | PROVIDERS: PCP Internal Medicine; Visit Provider Internal Medicine Rheumatology | DX: M05.79 Rheumatoid arthritis with rheumatoid factor of multiple sites without organ or systems involvement (principal); Z79.899 Other long term (current) drug therapy; Z71.89 Other specified counseling; M81.0 Age-related osteoporosis without current pathological fracture | CPT/HCPCS: 99214 ==

== ENCOUNTER → 2022-06-28 14:23 | Outpatient (BNVA) | payer MEDICARE, MEDICAID, SELFPAY | PROVIDERS: PCP Internal Medicine; Visit Provider Podiatrist Foot & Ankle Surgery | DX: M76.61 Achilles tendinitis, right leg (principal); M92.61 Juvenile osteochondrosis of tarsus, right ankle | CPT/HCPCS: 99214 ==

== ENCOUNTER → 2022-06-29 10:10 | Outpatient (BNVA) | payer MEDICARE, MEDICAID, SELFPAY | PROVIDERS: PCP Internal Medicine; Visit Provider Internal Medicine Rheumatology | DX: M05.741 Rheumatoid arthritis with rheumatoid factor of right hand without organ or systems involvement (principal); M05.742 Rheumatoid arthritis with rheumatoid factor of left hand without organ or systems involvement; Z79.899 Other long term (current) drug therapy; Z71.89 Other specified counseling; M81.0 Age-related osteoporosis without current pathological fracture | CPT/HCPCS: 36415; 80076; 82565; 85025; 86140; 99214 ==

== ENCOUNTER → 2022-10-06 10:07 | Outpatient (BNVA) | payer MEDICARE, MEDICAID, SELFPAY | PROVIDERS: PCP Internal Medicine; Visit Provider Internal Medicine Rheumatology | DX: M05.79 Rheumatoid arthritis with rheumatoid factor of multiple sites without organ or systems involvement (principal); Z79.899 Other long term (current) drug therapy; Z71.89 Other specified counseling; M81.0 Age-related osteoporosis without current pathological fracture; Z87.19 Personal history of other diseases of the digestive system; T39.4X5A Adverse effect of antirheumatics, not elsewhere classified, initial encounter; T42.1X5A Adverse effect of iminostilbenes, initial encounter; T45.1X5A Adverse effect of antineoplastic and immunosuppressive drugs, initial encounter | CPT/HCPCS: 99214 ==

== ENCOUNTER → 2022-10-26 15:17 | Outpatient (BNVA) | payer MEDICARE, MEDICAID, SELFPAY | PROVIDERS: PCP Internal Medicine; Visit Provider Podiatrist Foot & Ankle Surgery | DX: M92.61 Juvenile osteochondrosis of tarsus, right ankle (principal); M76.60 Achilles tendinitis, unspecified leg | CPT/HCPCS: 99213 ==

== ENCOUNTER → 2022-12-01 14:08 | Outpatient (BNVA) | payer MEDICARE, MEDICAID, SELFPAY | PROVIDERS: PCP Internal Medicine; Visit Provider Internal Medicine Rheumatology | DX: M05.79 Rheumatoid arthritis with rheumatoid factor of multiple sites without organ or systems involvement (principal); Z79.899 Other long term (current) drug therapy; Z71.89 Other specified counseling | CPT/HCPCS: 71046; 99214 ==

== ENCOUNTER 2022-12-21 07:28 | Outpatient (CLI) | payer MEDICARE, MEDICAID, SELFPAY ==
--- NOTE | 2022-12-21 07:30 | CT_ITS ---
WS: [id number] CT CHEST CT-HIGH RESOLUTION, NONCONTRAST. HISTORY: Interstitial lung disease. History of rheumatoid arthritis. Technique: High-resolution chest CT is performed in inspiration, expiration, supine and prone felicia pepper. All CT scans at [facility] use at least one of these dose optimization techniques: automated exposure control; mA and/or kV adjustment per patient size (includes targeted exams where dose is mat ched to clinical indication); or iterative reconstruction. DLP: 809.01 mGy.cm COMPARISON: Lung CT 02/08/2022 Findings: Pulmonary hyperinflation and emphysema. Very minimal peripheral interstitial thickening in the mid to lower lungs. No mass or nodules. No pleural thickening. Mild bronchiectasis centrally. No honeycombing. No air trapping or mosaic attenuation on the expirato ry imaging. No areas of atelectasis. There are no interstitial opacifications suggestive of connectiv e tissue disease. Mild atherosclerosis aorta. Normal size aorta and pulmonary artery. Normal size heart. No adenopathy. No adrenal mass. Mild anterior wedging of T7. CT/CT chest wo con [id number] Impression: 1. Hyperexpansion and chronic emphysema. 2. No pleural thickening, pleural effusion or pericardial effusion which can b e seen with rheumatoid disease. 3. There is very mild central bronchiectasis. 4. No honeycombing. No air trapping.
== END 2022-12-21 07:29 | disposition home or self-care (01) ==
LOC: RAD 07:31
PROVIDERS: PCP Internal Medicine; Visit Provider Internal Medicine Rheumatology
DX: J84.9 Interstitial pulmonary disease, unspecified (principal); R91.1 Solitary pulmonary nodule
CPT/HCPCS: 71250

== ENCOUNTER → 2022-12-27 08:31 | Outpatient (BNVA) | payer MEDICARE, MEDICAID, SELFPAY | PROVIDERS: PCP Internal Medicine; Visit Provider Internal Medicine Pulmonary Disease | DX: J44.9 Chronic obstructive pulmonary disease, unspecified (principal); M05.79 Rheumatoid arthritis with rheumatoid factor of multiple sites without organ or systems involvement; F17.210 Nicotine dependence, cigarettes, uncomplicated | CPT/HCPCS: 99214 ==

== ENCOUNTER → 2023-01-10 12:40 | Outpatient (BNVA) | payer MEDICARE, MEDICAID, SELFPAY | PROVIDERS: PCP Internal Medicine; Visit Provider Internal Medicine Rheumatology | DX: M05.79 Rheumatoid arthritis with rheumatoid factor of multiple sites without organ or systems involvement (principal); Z79.899 Other long term (current) drug therapy; I31.9 Disease of pericardium, unspecified; R94.39 Abnormal result of other cardiovascular function study; Z71.89 Other specified counseling | CPT/HCPCS: 99214 ==

== ENCOUNTER → 2023-02-14 09:54 | Outpatient (BNVA) | payer MEDICARE, MEDICAID, SELFPAY | PROVIDERS: PCP Internal Medicine; Visit Provider Internal Medicine Cardiovascular Disease | DX: R06.02 Shortness of breath (principal); J44.9 Chronic obstructive pulmonary disease, unspecified; M05.79 Rheumatoid arthritis with rheumatoid factor of multiple sites without organ or systems involvement; F17.200 Nicotine dependence, unspecified, uncomplicated; Z82.49 Family history of ischemic heart disease and other diseases of the circulatory system; F17.210 Nicotine dependence, cigarettes, uncomplicated; R94.31 Abnormal electrocardiogram [ECG] [EKG] | CPT/HCPCS: 93005; 99204 ==

== ENCOUNTER 2023-03-04 10:15 | Outpatient (CLI) | payer MEDICARE, MEDICAID, SELFPAY ==
--- NOTE | 2023-03-04 10:38 | MM_ITS ---
WS: [id number] Bilateral screening 3D tomosynthesis digital mammogram, 03/04/2023 Clinical Data: SCREENING Comparison: None. Findings: The breast parenchymal pattern shows glandular tissue. No spiculated masses or clustered calcificatio ns are seen. There are no secondary signs of carcinoma. MM/[place] [id number] Impression: 1. Negative bilateral mammogram with no prior exam for review. 2. Recommend annual screening mammograms. BIRADS: 1-Negative FOLLOW UP: 1 Year Follow-up The CAD time checker was used.
== END 2023-03-04 10:16 | disposition home or self-care (01) ==
PROVIDERS: PCP Internal Medicine; Visit Provider Internal Medicine
DX: Z12.31 Encounter for screening mammogram for malignant neoplasm of breast (principal)
CPT/HCPCS: 77063; 77067

== ENCOUNTER 2023-03-07 10:16 | Outpatient (CLI) | payer MEDICARE, MEDICAID, SELFPAY ==
--- NOTE | 2023-03-07 10:30 | USCV_ITS ---
Tari Mendoza Age: 62 Gender: F : 1960 Exam Date: 03/07/2023 10:35 Ordering Phys: Monica White MD [email or web address]) Technologist: VERONIQUE Exam Location: [facility] [place] Indication: Shortness of breath BP: 130 / 68 HR: 80 Rhythm: Sinus Technical Quality: Adequate MEASUREMENTS (Male / Female) Normal Values 2D ECHO LV Diastolic Diameter PLAX 3.2 cm 4.2 - 5.9 / 3.9 - 5.3 cm LV Systolic Diameter PLAX 2.1 cm IVS Diastolic Thickness 0.9 cm 0.6 - 1.0 / 0.6 - 0.9 cm IVS Systolic Thickness 1.0 cm LVPW Diastolic Thickness 1.2 cm 0.6 - 1.0 / 0.6 - 0.9 cm LVPW Systolic Thickness 1.2 cm LVOT Diameter 2.0 cm LV Ejection Fraction 2D Teich 63.9 % LV Ejection Fraction MOD 2C 44.0 % LV Ejection Fraction 2C AL 42.6 % LA Diameter 3.9 cm Aorta at Sinotubular Diameter 2.4 cm IVC Diameter 1.8 cm M-MODE Aortic Annulus Diameter 3.0 cm LA Ao Ratio MM 1.2 MV E Point Septal Separation 0.9 cm DOPPLER AV Peak Velocity 127.0 cm/s LVOT Peak Velocity 81.0 cm/s AV Area Cont Eq vti 2.4 cm squared AV Area Cont Eq pk 2.0 cm squared MV Peak Velocity 99.0 cm/s MV Area PHT 6.7 cm squared Mitral E to A Ratio 0.8 MV E' Velocity 48.0 cm/s Mitral E to MV E' Ratio 8.5 Mitral E to LV E' Lateral Ratio 8.0 Mitral E to LV E' Septal Ratio 9.2 TR Peak Velocity 149.0 cm/s TR Peak Gradient 8.9 mmHg TV Peak E Velocity 80.0 cm/s Right Atrial Pressure 3.0 mmHg Pulmonary Artery Systolic Pressu 11.9 mmHg FINDINGS Left Ventricle Normal left ventricular size, systolic function and wall thickness, with no regional wall motion abnormalities. Left ventricular ejection fraction is estimated at 60 %. Normal diastolic function. Right Ventricle Normal right ventricular size and systolic function. Right ventricular systolic pressure 11.9 mmHg. Right Atrium Normal right atrial size. Left Atrium Normal left atrial size. Mitral Valve Structurally normal mitral valve. No mitral valve stenosis. No mitral valve regurgitation. Aortic Valve Aortic valve not well visualized. No aortic valve stenosis. No aortic valve regurgitation. Tricuspid Valve Structurally normal tricuspid valve. No tricuspid valve stenosis. Trace tricuspid valve regurgitation. Pulmonic Valve Pulmonic valve not well visualized. Pericardium No pericardial effusion. Aorta Aorta not well visualized. IVC Normal inferior vena cava. CONCLUSIONS 1. Normal left ventricular size, systolic function and wall thickness, with no regional wall motion abnormalities. Left ventricular ejection fraction is estimated at 60 %. Normal diastolic function. 2. No significant valvular abnormality. 3. No change when compared to study dated 02/23/2019. Monica White MD (Electronically Signed) Final Date: 11 March 2023 23:21 S
== END 2023-03-07 10:17 | disposition home or self-care (01) ==
PROVIDERS: PCP Internal Medicine; Visit Provider Internal Medicine Cardiovascular Disease
DX: R06.02 Shortness of breath (principal)
CPT/HCPCS: 93306

== ENCOUNTER 2023-03-17 08:06 | Outpatient (CLI) | payer MEDICARE, MEDICAID, SELFPAY ==
[2023-03-17 08:16] VITALS: BMI 22.6
--- NOTE | 2023-03-17 08:31 | ECG_ITS ---
[facility] Test Date: 2023-03-17 Pat Name: Tari Mendoza Department: Room: Gender: Female Manager Dental: : 1960 Requested By: Monica White Order Number: [id number] Hand MD: Monica White M.D. Interpretive Statements NAME OF STUDY: EXERCISE SESTAMIBI STRESS TEST INDICATION: Shortness of Breath on exertion Baseline blood pressure of 133/63 mm Hg, heart rate 83 beats per minute and oxygen saturation 96%. EKG showed sinus rhythm, normal axis with normal ST-Ts. The patient exercised for 5 minutes on a standard Musa protocol. Patient attained a maximum heart rate of 154 beats per minute(96% of the maximum predicted heart rate) with a blood pressure at the peak exercise of 178/91 mm Hg saturation of 94%. The EKG at the peak exercise revealed sinus tachycardia with no significant ST-T wave changes. Patient did not have any chest pain or any significant arrhythmis with the exercise During the recovery phase, there were no new changes. Blood pressure at the end of the recovery phase was 144/89 mm Hg with a heart rate of 86 beats per minute and oxygen saturation of 98%. CONCLUSION: 1. Normal EKG response to treadmill exercise. 2. No exercise-induced chest pain or cardiac arrhythmia. 3. Good exercise tolerance, attained a maximum of 7 METs. 4. Baseline normal blood pressure with normal response to exercise. 5. Perfusion scan will be documented separately. Electronically Signed On 03-22-2023 10:53:13 CDT by Monica White M.D. [email or web address] [email or web address] d. [facility]ell [id number]
--- NOTE | 2023-03-17 08:31 | NMCV_ITS ---
NM betty perf SPECT r/s* [id number] Tari Mendoza Age: 62 Gender: F : 1960 Exam Date: 03/17/2023 09:11 Ordering Phys: Monica White MD ([email or web address]) Technologist: MEGHNA Browning Exam Location: [facility] Indications: SHORTNESS OF BREATH, ISCHEMIC HEART DISEASE STRESS TEST Please see separate stress test report in [facility] for full findings IMAGE PROTOCOL Rest/Stress 1 Exercise Day Radiopharmaceutical Dose (mCi) Administration Site Administered by Rest: Tc-99m 10.7 IV MEGHNA Servin Sestamibi Stress:Tc-99m 32.7 IV MEGHNA Servin Sestamibi Rest: 17-Mar-2023 60 Discovery 630 Stress: 17-Mar-2023 30 Discovery 630 Radiopharmaceutical was injected at 90 % maximum heart rate. Images obtained in supine and prone position. SPECT RESULTS Technical Quality: Excellent Raw Data Analysis: Normal Image Corrections: No attenuation or motion correction applied Summed Stress Score: 0 Summed Rest Score: 0 Summed Difference Score: 0 PERFUSION FINDINGS SPECT images demonstrate homogeneous tracer distribution throughout the myocardium. FUNCTIONAL RESULTS (calculated via Gated SPECT) Stress Image LV EF (%): 72 Stress EDV (mL):47 TID: 0.87 Stress ESV (mL):13 FUNCTIONAL FINDINGS: The left ventricle is normal in size. Transient Ischemia Dilatation of 0.87. The left ventricular ejection fraction is normal with a value of 72%. There is normal left ventricular wall thickening. Normal End-diastolic and end-systolic volumes. IMPRESSIONS 1. Myocardial perfusion imaging is normal. 2. Overall left ventricular systolic function is normal without regional wall motion abnormalities, LVEF=72%. 3. EKG portion of the study will be reported separately. 4. Scan indicates low risk for cardiac events. Monica White MD (Electronically Signed) Final Date: 21 March 2023 10:56 S
[2023-03-17 10:02] VITALS: BP 144/89; PULSE 88
== END 2023-03-17 08:07 | disposition home or self-care (01) ==
LOC: CDL 08:07
PROVIDERS: PCP Internal Medicine; Visit Provider Internal Medicine Cardiovascular Disease
DX: R06.02 Shortness of breath (principal)
CPT/HCPCS: 36415; 78452; 93017; A9500

== ENCOUNTER → 2023-04-11 11:19 | Outpatient (BNVA) | payer MEDICARE, MEDICAID, SELFPAY | PROVIDERS: PCP Internal Medicine; Visit Provider Internal Medicine Rheumatology | DX: M05.79 Rheumatoid arthritis with rheumatoid factor of multiple sites without organ or systems involvement (principal); Z79.899 Other long term (current) drug therapy; Z71.89 Other specified counseling; M81.0 Age-related osteoporosis without current pathological fracture | CPT/HCPCS: 36415; 80076; 82565; 85025; 86140; 99214 ==

== ENCOUNTER 2023-05-29 11:17 | Emergency (ER) | payer MEDICARE, MEDICAID, SELFPAY ==
[2023-05-29 11:32] VITALS: BP 111/82; PULSE 101; RESP 17; TEMP 36.1; O2SAT 96; BMI 23.3
--- NOTE | 2023-05-29 11:50 | W.ED.SKABFB ---
HPI - Skin/Abscess/Foreign Bdy General: Chief complaint: Skin/Abscess/Foreign Body Stated complaint: rash everywhere Time Seen by Provider: 05/29/23 11:20 History of Present Illness: vale martins is a 62-year-old female that presents to the emergency department with her son and [id number]-nad. She reports 8-day history of urticaria. Patient states symptoms began abruptly a week ago Tuesday. Patient started on Benadryl but without relief Patient was seen at outside facility and was given a prescription of Vistaril and an injection of steroids. Patient states that she did receive some improvement in the level of pruritus but no change in urticaria. She reports urticaria present to legs, torso, arms, neck, face and scalp History rheumatoid arthritis, COPD and GERD Associated symptoms: Deny chills, fever(s), nausea or vomiting Review of Systems General: Reports: 10 or more systems reviewed and unremarkable except in HPI and below Const: Denies: fever(s) or chills Eyes: Denies: change in vision Card: Denies: chest pain, palpitations, irregular heart rhythm, edema or dyspnea on exertion Resp: Denies: dyspnea GI: Denies: abdominal pain, nausea, vomiting, diarrhea or constipation : Denies: difficulty voiding, dysuria or urinary frequency Musc: Denies: neck pain, back pain or extremity pain Skin/Breast: Reports: rash, pruritus and erythema; Denies: photosensitivity or new lesions Neuro: Denies: headache(s), numbness in extremities, weakness in extremities, sensory changes or lack of coordination Endo: Denies: polyuria, polydipsia or tired all the time Alejandro/Lymph: Denies: easy bruising or easy bleeding PFSH ED PFSH: Medical History Chronic intermittent steroid use Chronic obstructive pulmonary disease Emphysema lung Encounter for osteoporosis screening in asymptomatic postmenopausal patient Encounter for screening for other viral diseases Family history of ischemic heart disease and other diseases of the circulatory system Gastritis High risk medication use History of pericarditis (~2011) History of pre-eclampsia Immunization counseling Osteoarthritis Post-menopausal osteoporosis Rheumatoid arthritis with rheumatoid factor Scoliosis Seropositive rheumatoid arthritis of multiple sites Shortness of breath Surgical History H/O arthroplasty H/O tubal ligation H/O: hysterectomy History of repair of hiatal hernia Hx of cholecystectomy S/P knee surgery Family History Other CAD (coronary artery disease) Diabetes Hypertension Lung disease Rheumatoid arthritis Stroke Social History Smoking and tobacco status: current every day smoker cigarettes Packs smoked per day: 1 Years cigarettes smoked: 36 [ Other cigarette details: started at age 25] Second hand smoke exposure: Yes Smoking risk assessment/counseling performed?: Yes Alcohol intake: never Counseling given: No Substance/Drug Use: never Counseling given: No Lives independently: Yes Household members: none Marital status: Current occupational status: disabled Do you think of yourself as: Straight/Heterosexual Current gender identity: Female Physical Exam Const: COMMON NORMALS: no acute distress, patient oriented x3 and alert GENERAL APPEARANCE: cooperative ORIENTATION/CONSCIOUSNESS: Yes awake, Yes oriented to person, Yes oriented to place and Yes oriented to time HENMT: COMMON NORMALS: normocephalic and atraumatic HEAD & SCALP: normocephalic and atraumatic FACE & SINUS: normal facial exam Eye: COMMON NORMALS: Equal, round and reactive pupils present, EOMs intact bilaterally, conjunctivae normal and no scleral icterus GENERAL EYE: appearance normal, both eyes and all related structures ALIGNMENT: Yes alignment normal PERIORBITAL: periorbital findings normal CONJUNCTIVA: Yes conjunctivae normal PUPIL: Yes Equal, round and reactive pupils present Neck/C-Spine: COMMON NORMALS: full ROM GENERAL: Yes normal visual inspection Lymph: LYMPHATIC: no lymphadenopathy noted Chest: COMMONS NORMALS: normal inspection of the chest Breast/axilla inspection: Yes no chest deformity, asymmetry, normal contours, no nodules, masses, tenderness Resp: COMMON NORMALS: normal respiratory effort, No retractions, No use of accessory muscles and clear to auscultation bilaterally EFFORT & INSPECTION: Yes able to speak in complete sentences and Yes symmetric chest movement AUSCULTATION: clear to auscultation bilaterally Cardio: COMMON NORMALS: regular rate, regular rhythm and Peripheral pulses 2+ throughout RATE: regular rate RHYTHM: regular rhythm PERIPHERAL PULSES: Peripheral pulses 2+ throughout GI: COMMON NORMALS: Normal to inspection, nondistended, normoactive bowel sounds present, Soft to palpation, non-tender and No hepatosplenomegaly present INSPECTION: Yes normal to inspection AUSCULTATION: Yes normoactive bowel sounds PALPATION: Yes Soft to palpation and Yes No hepatosplenomegaly present RECTAL EXAM: deferred Extremity: COMMON NORMALS: normal to inspection GENERAL: Yes normal exam except as noted Neuro: COMMON NORMALS: patient oriented x3 SENSORIUM/ORIENTATION: Yes alert, Yes oriented to person, Yes oriented to place and Yes oriented to time CRANIAL NERVES: Yes CN normal except as noted Psych: COMMON NORMALS: mental status grossly normal, Normal thought process present, cooperative, activity/motor behavior normal, denies homicidal ideation and denies suicidal ideation THOUGHT PROCESS: Normal thought process present Skin: COMMON NORMALS: no wounds and turgor normal SKIN IMAGES (FEMALE): 1. 2. 3. 4. 5. 6. 7. 8. 9. 10. GENERAL SKIN EXAM: turgor normal RASHES: rashes noted (diffuse erythematous and pruritic urticaria ) Course Vital Signs: Vital signs: Vital Signs Temperature 97.0 F L 05/29/23 11:32 Pulse Rate 101 H 05/29/23 11:32 Respiratory Rate 17 05/29/23 11:32 Blood Pressure 111/82 05/29/23 11:32 Pulse Oximetry 96 05/29/23 11:32 Oxygen Delivery Me thod Room Air 05/29/23 11:32 MDM - Skin/Abscess/Foreign Bdy Medicial Decision Making Patient was seen in the emergency department today for urticaria. Patient has been seen at 2 other facilities in the last 8 days. No identifiable cause She has trialed Vistaril as well as Benadryl and steroids. Steroids seem to be the only thing that helped. Patient was treated here in the emergency department with Solu-Medrol, famotidine, cetirizine, and Benadryl. While the rash is still present it has improved and the itching has ceased We have set up a referral case management to assist in getting the patient in with an department mgr. Patient is to return here as needed for new concerning or worsening symptoms but otherwise follow-up with primary care No radiology studies performed this visit Discharge Plan Discharge Patient Disposition: Home Clinical Impression: Urticaria Condition: Stable Prescriptions: New prednisone 50 mg tablet 50 mg PO DAILY 5 Days Qty: 5 0RF No Action topiramate [Topamax] 50 mg tablet 200 mg PO DAILY Rinvoq 15 mg tablet extended release 24 hr 15 mg PO DAILY Qty: 30 3RF cholecalciferol (vitamin D3) 50 mcg (2,000 unit) tablet 2,000 unit PO DAILY Qty: 30 3RF pantoprazole 40 mg tablet,delayed release (DR/EC) See Rx Instructions .ROUTE .COMPLEX Qty: 30 3RF Dose Instruction: TAKE 1 TABLET BY MOUTH EVERY DAY Rx Instructions: TAKE 1 TABLET BY MOUTH EVERY DAY prednisone 20 mg tablet See Rx Instructions PO .COMPLEX PRN (Reason: joint pain flare) Qty: 30 1RF Rx Instructions: take 2 tab daily for 7 days as needed for arthritis flare PO PRN; prednisone 5 mg tablet 10 mg PO DAILY PRN (Reason: flare) [id number] 50 mg-25 mg- 75 mg-1.5 mg capsule PO Stiolto Respimat 2.5-2.5 mcg/actuation mist 2 puff inhalation DAILY Qty: 4 3RF albuterol sulfate 90 mcg/actuation HFA aerosol inhaler 90 mcg INHALATION DAILY Discharge Orders: Discharge ED (Routine); Ordered 05/29/23 Ordered By: Leon Reyes McTsherry Referrals: Yessica Travis MD [Primary Care Provider] - Discharge Diet: Advance as tolerated Discharge Activity: Resume usual activity Patient Instructions: Urticaria (ED), Pain Management Activity Restrictions/Additional Instructions: Zyrtec in the morning Benadryl or Vistaril throughout the day as needed for hives and itching Can also take famotidine which is [id number] or pantoprazole which you are already prescribed. You would take this daily Also giving you steroids 50 mg they are going to take once a day for 5 days Your symptoms are not going to completely go away. They will subside over time. I have sent a referral for case management to assist with an department mgr You need to follow-up with primary care and return here as needed for new concerning or worsening symptoms Coding Level of Care Code ED Registered Nurse Bone Marrow Transplant for Estiven Faust
[2023-05-29] MEDS: cetirizine 10 mg Tablet PO (12:07)
[2023-05-29] MEDS: famotidine 20 mg/2 mL INJ IVP (12:08)
[2023-05-29] MEDS: diphenhydrAMINE 50 mg/mL SDV 1mL 25 MG IVP (12:11)
[2023-05-29] MEDS: methylPREDNISolone sod succ 125 MG in water for injection-sterile 2 ML 24 MG IVP (12:16)
--- NOTE | 2023-05-30 12:59 | PC.SOCIAL ---
Acting Manager Spoke with patient about referral to consumer lending manager. She states that she would like to talk to Dr. Travis about this and does not want CM to send referral.
== END 2023-05-29 13:30 | disposition home or self-care (01) ==
PROVIDERS: Emergency Provider Nurse Practitioner; PCP Internal Medicine
DX: L50.9 Urticaria, unspecified (principal); F17.210 Nicotine dependence, cigarettes, uncomplicated; J44.9 Chronic obstructive pulmonary disease, unspecified
CPT/HCPCS: 36415; 87040; 96374; 96375; 99284; J1200; J2930; J3490

== ENCOUNTER → 2023-06-06 10:43 | Outpatient (BNVA) | payer MEDICARE, MEDICAID, SELFPAY | PROVIDERS: PCP Internal Medicine; Visit Provider Internal Medicine Cardiovascular Disease | DX: R06.02 Shortness of breath (principal); Z82.49 Family history of ischemic heart disease and other diseases of the circulatory system; F17.210 Nicotine dependence, cigarettes, uncomplicated | CPT/HCPCS: 99214 ==

== ENCOUNTER 2023-06-14 12:45 | Outpatient (CLI) | payer MEDICARE, MEDICAID, SELFPAY ==
--- NOTE | 2023-06-14 12:52 | CT_ITS ---
WS: [id number] LDCT LUNG CANCER SCREENING HISTORY: NICOTINE DEPENDENCE,CIGARETTES TECHNIQUE: Axial imaging performed from the apices to 1 cm below the costophrenic angles. Coronal and sagittal reformats are submitted with axial MIP series. All CT scans at [facility] use at least one of these dose optimization techniques: automated exposure control; mA and/or kV adjustment per patient size (includes targeted exams where dose is matched to clinical indication); or iterativ e reconstruction. DLP: 53.10 mGy.cm DIvol: Mean CTDIvol: 1.10 (mGy) COMPARISON: Chest CT 12/21/2022 Diagnostic quality: Satisfactory Lungs: Moderate pulmonary hyperinflation with centrilobular emphysema. No pulmonary mass or nodule. T here is very minimal groundglass attenuation and interstitial thickening in the periphery of the lowe r lung spence. No endobronchial lesions. Heart: Normal size heart with no pericardial effusion.. Other findings: Atherosclerosis aorta. Normal size thoracic aorta. Normal sized pulmonary artery. No adenopathy. IMPRESSION: CT/CT lung screening [id number] LUNG-RADS: 1-Negative FOLLOW UP: 12 Month: Continue annual screening with LDCT OTHER FINDINGS (S MODIFIER): None.
--- NOTE | 2023-06-14 12:52 | XR_ITS ---
WS: [id number] DEXA (DUAL ENERGY X-RAY ABSORPTIOMETRY) Bone mineral density was performed using a [employer] machine. HISTORY: OSTEOPOROSIS COMPARISON: 10/15/2020 Lumbar spine BMD (L1-L4): 0.801 g/cm2 T score: -3.2 Z score: -2.0 Total hip BMD: Left: 0.748 g/cm2. T score: -2.1 Z score: -1.2 Right: 0.749 g/cm2. T score: -2.1 Z score: -1.2 10 year probability of a major osteoporotic fracture is 39.4%. Compared to the prior study from 10/15/2020. Lumbar spine bone mineral density has increased by 4.0%. Bilateral hips bone mineral density has decreased by 1.8%. IMPRESSION: OSTEOPOROSIS based upon the WHO classification for females. Significant increase in bone mineral density in the lumbar spine since the prior study. No change of bone mineral density in the hips.
--- NOTE | 2023-06-14 13:37 | XR_ITS ---
WS: [email or web address] Exam: XR elbow LT min 3V* [id number] Date/Time of Exam: 06/14/2023 1:38 PM Reason For Exam: PAIN IN LEFT ELBOW Comparison 12/01/2015. Findings: There are no fractures, soft tissue swelling, or calcifications. The elbow shows normal bony alignme nt. There is no irregularity of the bony architecture. IMPRESSION: Negative LEFT elbow.
== END 2023-06-14 12:46 | disposition home or self-care (01) ==
LOC: RAD 12:48
PROVIDERS: PCP Internal Medicine; Visit Provider Internal Medicine
DX: Z12.2 Encounter for screening for malignant neoplasm of respiratory organs (principal); F17.210 Nicotine dependence, cigarettes, uncomplicated; M81.0 Age-related osteoporosis without current pathological fracture; M25.522 Pain in left elbow
CPT/HCPCS: 71271; 73080; 77080

== ENCOUNTER → 2023-10-05 10:36 | Outpatient (BNVA) | payer MEDICARE, MEDICAID, SELFPAY | PROVIDERS: PCP Internal Medicine; Visit Provider Internal Medicine Pulmonary Disease | DX: J43.2 Centrilobular emphysema (principal); F17.210 Nicotine dependence, cigarettes, uncomplicated; M05.79 Rheumatoid arthritis with rheumatoid factor of multiple sites without organ or systems involvement; I70.0 Atherosclerosis of aorta | CPT/HCPCS: 71046; 99214 ==

== ENCOUNTER → 2023-10-10 14:07 | Outpatient (BNVA) | payer MEDICARE, MEDICAID, SELFPAY | PROVIDERS: PCP Internal Medicine; Visit Provider Internal Medicine Rheumatology | DX: Z79.899 Other long term (current) drug therapy (principal); Z71.89 Other specified counseling; M05.79 Rheumatoid arthritis with rheumatoid factor of multiple sites without organ or systems involvement | CPT/HCPCS: 99214 ==

== ENCOUNTER 2023-11-17 10:49 | Outpatient (CLI) | payer MEDICARE, MEDICAID, SELFPAY ==
--- NOTE | 2023-11-17 11:01 | XRR_ITS ---
PROCEDURE INFORMATION: Exam: XR Lumbosacral Spine Exam date and time: 11/17/2023 11:07 AM Age: 63 years old Clinical indication: Low back pain; Prior surgery; Surgery date: 6+ months; Surgery type: Gallbladder removal, hernia repair, hysterectomy, RT knee scope; Additional info: Lumbar degenerative disc dz w/radiculopathy TECHNIQUE: Imaging protocol: Radiologic exam of the lumbosacral spine. Views: 4 or 5 views. COMPARISON: CR XR lumbar spine 2-3V* [id number] 06/15/2017 1:27 PM FINDINGS: Bones/joints: Mild lumbar scoliosis convex to the right. Mild bilateral L5-S1 and right L4-L5 facet osteoarthritis. Otherwise, unremarkable. Soft tissues: Unremarkable. Vasculature: Arterial calcifications. Several small calcifications in the pelvis are highly likely to be phleboliths. However, in the proper clinical setting a distal ureteral calculus may need to be considered. XR/XR lumbar spine min 4V [id number] IMPRESSION: 1. No acute findings. 2. Additional details as above.
== END 2023-11-17 10:50 | disposition home or self-care (01) ==
LOC: RAD 10:50
PROVIDERS: PCP Internal Medicine; Visit Provider Internal Medicine
DX: M51.17 Intervertebral disc disorders with radiculopathy, lumbosacral region (principal)
CPT/HCPCS: 72110

== ENCOUNTER 2024-01-09 14:19 | Outpatient (CLI) | payer MEDICARE, MEDICAID, SELFPAY ==
--- NOTE | 2024-01-09 14:25 | XRR_ITS ---
PROCEDURE INFORMATION: Exam: XR Left Foot Exam date and time: 01/09/2024 2:43 PM Age: 63 years old Clinical indication: Pain; Foot; Left; Additional info: L foot pain, cyst like area beneath great toe TECHNIQUE: Imaging protocol: Radiologic exam of the left foot. Views: 3 or more views. COMPARISON: CR XR foot LT min 3V* [id number] 02/24/2022 2:51 PM FINDINGS: Bones/joints: Normal. No fracture or dislocation. No erosive changes. No osteoarthritis. Soft tissues: Normal. XR/XR foot LT min 3V* [id number] IMPRESSION: No acute findings.
== END 2024-01-09 14:20 | disposition home or self-care (01) ==
LOC: RAD 14:21
PROVIDERS: PCP Internal Medicine; Visit Provider Nurse Practitioner Family
DX: M79.672 Pain in left foot (principal); R93.6 Abnormal findings on diagnostic imaging of limbs
CPT/HCPCS: 73630

== ENCOUNTER → 2024-02-13 10:44 | Outpatient (BNVA) | payer MEDICARE, MEDICAID, SELFPAY | PROVIDERS: PCP Internal Medicine; Visit Provider Podiatrist Foot & Ankle Surgery | DX: M20.12 Hallux valgus (acquired), left foot; M05.79 Rheumatoid arthritis with rheumatoid factor of multiple sites without organ or systems involvement | CPT/HCPCS: 99213 ==

== ENCOUNTER → 2024-02-20 14:24 | Outpatient (BNVA) | payer MEDICARE, MEDICAID, SELFPAY | PROVIDERS: PCP Internal Medicine; Visit Provider Internal Medicine Rheumatology | DX: M05.79 Rheumatoid arthritis with rheumatoid factor of multiple sites without organ or systems involvement (principal); M81.0 Age-related osteoporosis without current pathological fracture; Z79.899 Other long term (current) drug therapy; Z71.85 Encounter for immunization safety counseling; F17.210 Nicotine dependence, cigarettes, uncomplicated; Z87.19 Personal history of other diseases of the digestive system | CPT/HCPCS: 99214 ==

== ENCOUNTER → 2024-03-05 10:38 | Outpatient (BNVA) | payer MEDICARE, MEDICAID, SELFPAY | PROVIDERS: PCP Internal Medicine; Visit Provider Nurse Practitioner Family | DX: R06.02 Shortness of breath (principal) | CPT/HCPCS: 99213 ==

== ENCOUNTER → 2024-03-12 08:50 | Outpatient (BNVA) | payer MEDICARE, MEDICAID, SELFPAY | PROVIDERS: PCP Internal Medicine; Visit Provider Nurse Practitioner Family | DX: D48.5 Neoplasm of uncertain behavior of skin (principal); L57.8 Other skin changes due to chronic exposure to nonionizing radiation; L81.4 Other melanin hyperpigmentation; Z85.820 Personal history of malignant melanoma of skin | CPT/HCPCS: 11102; 99203 ==

== ENCOUNTER 2024-06-15 11:10 | Outpatient (CLI) | payer MEDICARE, MEDICAID, SELFPAY ==
--- NOTE | 2024-06-15 11:15 | CT_ITS ---
WS: [email or web address] LDCT LUNG CANCER SCREENING TECHNIQUE: Noncontrast CT of the chest with coronal and sagittal reformatted images. CLINICAL INFORMATION: Cancer Screen COMPARISON: CT 06/14/2023 DLP: 62.18 mGy.cm DIvol: Mean CTDIvol: 1.10 (mGy) All CT scans at [facility] use at least one of these dose optimization techniques: automat ed exposure control; mA and/or kV adjustment per patient size (includes targeted exams where dose is matched to clinical indication); or iterative reconstruction. FINDINGS: Moderate chronic centrilobular emphysema. No new suspicious pulmonary parenchymal abnormalities. Normal caliber thoracic aorta. Aortic calcification. Coronary calcification. No mediastinal or hilar lymphadenopathy. No axillary lymphadenopathy. Adrenal glands are normal. Moderate thoracic kyphosis. Endplate Schmorl's nodes in the midthoracic sp ine. CT/CT lung screening [id number] IMPRESSION: LUNG-RADS: 1-Negative FOLLOW UP: 12 Month: Continue annual screening with LDCT
== END 2024-06-15 11:11 | disposition home or self-care (01) ==
LOC: RAD 11:11
PROVIDERS: PCP Internal Medicine; Visit Provider Internal Medicine Pulmonary Disease
DX: Z12.2 Encounter for screening for malignant neoplasm of respiratory organs (principal); F17.210 Nicotine dependence, cigarettes, uncomplicated; J43.2 Centrilobular emphysema; I70.0 Atherosclerosis of aorta; I25.84 Coronary atherosclerosis due to calcified coronary lesion; M40.204 Unspecified kyphosis, thoracic region; M51.44 Schmorl's nodes, thoracic region
CPT/HCPCS: 71271

== ENCOUNTER → 2024-07-09 13:39 | Outpatient (BNVA) | payer MEDICARE, MEDICAID, SELFPAY | PROVIDERS: PCP Internal Medicine; Visit Provider Internal Medicine Rheumatology | DX: M54.9 Dorsalgia, unspecified (principal); Z71.89 Other specified counseling; M81.0 Age-related osteoporosis without current pathological fracture; M05.79 Rheumatoid arthritis with rheumatoid factor of multiple sites without organ or systems involvement; Z79.899 Other long term (current) drug therapy | CPT/HCPCS: 99214 ==

== ENCOUNTER 2024-07-10 13:03 | Outpatient (CLI) | payer MEDICARE, MEDICAID, SELFPAY ==
--- NOTE | 2024-07-10 13:07 | XR_ITS ---
WS: [id number] Exam: XR thoracic spine 3V* [id number] Date/Time of Exam: 07/10/2024 1:15 PM Reason For Exam: M54.9 - Dorsalgia, unspecified Comparison 06/15/2018. No acute fracture. Mild spondylosis. No significant scoliosis. Unremarkable pa raspinal soft tissues. Slightly increased kyphosis. XR/XR thoracic spine 3V* [id number] IMPRESSION: 1. Minimal degenerative changes. No other significant finding.
--- NOTE | 2024-07-10 13:07 | XR_ITS ---
WS: [email or web address] Exam: XR lumbar spine 2-3V* [id number] Date/Time of Exam: 07/10/2024 1:15 PM Reason For Exam: M54.9 - Dorsalgia, unspecified Comparison 11/17/2023. No fracture or dislocation. Disc spaces are preserved. Posterior elements are intact. Osteopenia. XR/XR lumbar spine 2-3V* [id number] IMPRESSION: 1. No fracture or malalignment. Osteopenia.
== END 2024-07-10 13:04 | disposition home or self-care (01) ==
LOC: RAD 13:04
PROVIDERS: PCP Internal Medicine; Visit Provider Internal Medicine Rheumatology
DX: M40.204 Unspecified kyphosis, thoracic region (principal); M85.80 Other specified disorders of bone density and structure, unspecified site
CPT/HCPCS: 72072; 72100

== ENCOUNTER → 2024-11-15 11:15 | Outpatient (BNVA) | payer MEDICARE, MEDICAID, SELFPAY | PROVIDERS: PCP Internal Medicine; Visit Provider Internal Medicine Rheumatology | DX: Z79.899 Other long term (current) drug therapy (principal); Z71.89 Other specified counseling; M05.79 Rheumatoid arthritis with rheumatoid factor of multiple sites without organ or systems involvement | CPT/HCPCS: 36415; 80076; 82565; 85025; 85651; 86140; 99214 ==

== ENCOUNTER → 2025-01-05 13:43 | Outpatient (BNVA) | payer MEDICARE, MEDICAID, SELFPAY | PROVIDERS: PCP Internal Medicine; Visit Provider Family Medicine | DX: J02.9 Acute pharyngitis, unspecified (principal) | CPT/HCPCS: 87071; 87880 ==

== ENCOUNTER 2025-02-15 15:16 | Outpatient (CLI) | payer MEDICARE, MEDICAID, SELFPAY ==
--- NOTE | 2025-02-15 15:22 | XR_ITS ---
WS: [email or web address] Exam: XR chest 2V* [id number] Date/Time of Exam: 02/15/2025 3:33 PM Reason For Exam: COUGH, COPD Comparison 10/05/2023. Lungs are fully expanded and clear. Normal cardiomediastinal silhouette. Bony structures are intact. No pleural effusions. XR/XR chest 2V* [id number] IMPRESSION: 1. No acute cardiopulmonary finding.
== END 2025-02-15 15:17 | disposition home or self-care (01) ==
PROVIDERS: PCP Internal Medicine; Visit Provider Nurse Practitioner Family
DX: J44.9 Chronic obstructive pulmonary disease, unspecified (principal); R05.8 Other specified cough
CPT/HCPCS: 71046

== ENCOUNTER 2025-02-20 14:25 | Outpatient (CLI) | payer MEDICARE, MEDICAID, SELFPAY ==
[2025-02-20 15:18] LABS: Hematocrit 41.7 % (36-47); Hemoglobin 13.90 g/dL (11.27-16.99); Mean Corpuscular HGB Conc 33.3 g/dL (30-55); Mean Corpuscular Hemoglobin 33.1 pg (27-33); Mean Corpuscular Volume 99.3 fl (85-98); Nucleated Red Blood Cells % 0 %; Platelet Count 398 10^3/cmm (157-399); Red Blood Count 4.20 10^6/uL (3.85-5.65); White Blood Count 9.48 10^3/uL (3.29-11.43)
[2025-02-20 15:41] LABS: Alanine Aminotransferase 25 U/L (0-33); Albumin Level 4.4 g/dL (3.5-5.2); Alkaline Phosphatase 86 U/L (35-105); Anion Gap 20.0 (5-19); Aspartate Amino Transferase 22 U/L (0-32); Blood Urea Nitrogen 11 mg/dL (8-23); Calcium 9.4 mg/dL (8.5-10.5); Carbon Dioxide 22 mmol/L (22-29); Chloride 104 mmol/L (98-107); Globulin 3.1 g/dL (1.3-4.6); Glucose 147 mg/dL (65-115); Osmolality Calculated 296 mOsm/kg (285-295); Potassium 4.0 mmol/L (3.5-5.1); Sodium 142 mmol/L (136-145); Total Protein 7.5 g/dL (6.6-8.7)
== END 2025-02-20 14:26 | disposition home or self-care (01) ==
PROVIDERS: PCP Internal Medicine; Visit Provider Nurse Practitioner Family
DX: R05.9 Cough, unspecified (principal); Z77.120 Contact with and (suspected) exposure to mold (toxic); R06.00 Dyspnea, unspecified; M06.9 Rheumatoid arthritis, unspecified
CPT/HCPCS: 80053; 85025; 87385

== ENCOUNTER 2025-03-04 14:53 | Outpatient (CLI) | payer MEDICARE, MEDICAID, SELFPAY ==
--- NOTE | 2025-03-04 15:02 | CT_ITS ---
WS: [id number] CT CHEST TECHNIQUE: Contrast enhanced CT of the chest with coronal and sagittal reformatted images. CLINICAL INFORMATION: MOLD EXPOSURE, DYSPNEA, NICOTINE DEPENDENCE COMPARISON: CT 06/15/2024 DLP: 290.[address] scans at [facility] use at least one of these dose optimization techniques: automated exposure control; mA and/or kV adjustment per patient size (includes targeted exams where dose is matched to clinical indication); or iterative reconstruction. FINDINGS: Moderate chronic centrilobular emphysematous change. Slight subsegmental atelectasis LEFT lower lobe. No other suspicious pulmonary parenchymal abnormalities. No mediastinal or hilar lymphadenopathy. No axillary lymphadenopathy. Normal caliber thoracic aorta. Aortic calcification. Coronary calcification. Adrenal glands are normal. Moderate thoracic kyphosis. Endplate Schmorl's nodes in the midthoracic spine. CT/CT chest w con* [id number] IMPRESSION: 1. Moderate chronic centrilobular emphysematous change. 2. No new suspicious 1 parenchymal abnormalities. 3. No mediastinal or hilar lymphadenopathy. 4. No other suspicious findings.
[2025-03-04] MEDS: iohexol 350 mg/mL 500 mL Btl (per mL) IV (15:25)
== END 2025-03-04 14:54 | disposition home or self-care (01) ==
LOC: RAD 14:54
PROVIDERS: PCP Internal Medicine; Visit Provider Nurse Practitioner Family
DX: J43.2 Centrilobular emphysema (principal); M51.44 Schmorl's nodes, thoracic region; M40.294 Other kyphosis, thoracic region; Z79.899 Other long term (current) drug therapy; Z71.85 Encounter for immunization safety counseling; M05.79 Rheumatoid arthritis with rheumatoid factor of multiple sites without organ or systems involvement
CPT/HCPCS: 71260; 99214

== ENCOUNTER → 2025-03-06 14:07 | Outpatient (BNVA) | payer OTHER, MEDICAID, SELFPAY | PROVIDERS: PCP Internal Medicine; Visit Provider Internal Medicine Cardiovascular Disease | DX: I25.10 Atherosclerotic heart disease of native coronary artery without angina pectoris (principal); I10 Essential (primary) hypertension; E78.5 Hyperlipidemia, unspecified; J43.9 Emphysema, unspecified; M05.9 Rheumatoid arthritis with rheumatoid factor, unspecified | CPT/HCPCS: 99204; 99214 ==

== ENCOUNTER → 2025-05-09 08:55 | Outpatient (BNVA) | payer OTHER, MEDICAID, SELFPAY | PROVIDERS: PCP Internal Medicine; Visit Provider Internal Medicine | DX: J44.9 Chronic obstructive pulmonary disease, unspecified (principal); M05.9 Rheumatoid arthritis with rheumatoid factor, unspecified; D84.9 Immunodeficiency, unspecified; F17.210 Nicotine dependence, cigarettes, uncomplicated | CPT/HCPCS: 36415; 82103; 82784; 99215 ==

== ENCOUNTER → 2025-05-20 16:14 | Outpatient (BNVA) | payer OTHER, MEDICAID, SELFPAY | PROVIDERS: PCP Internal Medicine; Visit Provider Internal Medicine Cardiovascular Disease | DX: R58 Hemorrhage, not elsewhere classified (principal); I10 Essential (primary) hypertension; R06.02 Shortness of breath; I25.10 Atherosclerotic heart disease of native coronary artery without angina pectoris | CPT/HCPCS: 36415; 80048; 85025; 85610 ==

== ENCOUNTER 2025-06-03 09:42 | Outpatient (CLI) | payer OTHER, MEDICAID, SELFPAY ==
--- NOTE | 2025-06-03 09:47 | XR_ITS ---
WS: [email or web address] LEFT TIBIA-FIBULA 2 VIEWS HISTORY: PAIN IN LEFT LOWER LEG COMPARISON: None available. No fracture, dislocation or joint abnormality. XR/XR tibia fibula LT 2V [id number] IMPRESSION: Normal LEFT tibia-fibula.
--- NOTE | 2025-06-03 09:47 | XR_ITS ---
WS: [id number] LEFT KNEE: 3 VIEW(S) TECHNIQUE: AP, oblique(s) and lateral. HISTORY: LEFT KNEE PAIN COMPARISON: None available. No fracture or dislocation. No joint space narrowing or osteophytes. No joint effusion. No soft tissue abnormality. XR/XR knee LT 4V [id number] IMPRESSION: Normal LEFT knee.
== END 2025-06-03 09:43 | disposition home or self-care (01) ==
PROVIDERS: PCP Internal Medicine; Visit Provider Nurse Practitioner Family
DX: M79.662 Pain in left lower leg (principal); M25.562 Pain in left knee
CPT/HCPCS: 73564; 73590

== ENCOUNTER 2025-06-09 12:39 | Emergency (ER) | payer OTHER, MEDICAID, SELFPAY ==
--- OUTSIDE RECORDS SUMMARY | 2025-06-09 12:44 | XMS_ITS | Clinical Summary ---
Author Organization [facility] de Address [address] [place] [address] Phone Care Team Providers Care Complaint Supervisor Name Role Phone Unavailable Primary Care Provider Unavailabl e Social History Tobacco Use Types Packs/Day Years Used Date Smoking Tobacco: Never Assessed Comments Unknown Sex and Gender Information Value Date Recorded Sex Assigned at Not on file Legal Sex Female 9:04 AM CDT Gender Identity Not on file Sexual Orientation Not on file Plan of Treatment Health Maintenance Due Date Last Done Comments DTAP/TDAP/TD VACCINES (1 - Tdap) 1981 HPV/Cotest (21-29) 1983 CERVICAL CANCER SCREENING 1992 HPV/Cotest (30-65) 1992 PAP SMEAR 1992 BREAST CANCER SCREENING 2002 COLORECTAL SCREENING 2007 Colorectal Cancer Screening 2007 FIT-DNA Q 3 years 2007 FIT/FOBT Q 1 year 2007 Flex Sig/CT Colonography Q 5 years 2007 ZOSTER VACCINE (1 of 2) 2012 INFLUENZA VACCINE (#1) 2025 RSV VACCINE (60+ or ) (1 - 1-dose 75+ series) 2037
--- OUTSIDE RECORDS SUMMARY | 2025-06-09 12:44 | XMS_ITS | Clinical Summary ---
Author Organization [facility] de Address [address] [place] [address] Phone Care Team Providers Care Lean Process Deployment Consultant Name Role Phone Unavailable Primary Care Provider Unavailabl e Encounters Date Type Department Care Team Description 05/07/2025 External Device Data STL ABSTRACTION Provider, Abstract from Last 3 Months Social History Tobacco Use Types Packs/Day Years Used Date Smoking Tobacco: Never Assessed Comments Unknown Sex and Gender Information Value Date Recorded Sex Assigned at Not on file Legal Sex Female 9:04 AM CDT Gender Identity Not on file Sexual Orientation Not on file Plan of Treatment Upcoming Encounters Date Type Department Care Team (Late st Contact Info) Description 12/31/2025 10:20 AM CDT Office Visit [facility] Rheumatology- Tommy Humphrey [place] [address] [place] [phone] Sarah Parekh MD [address] [place] [id number] Health Maintenance Due Date Last Done Comments [...]
[2025-06-09 12:48] VITALS: BP 170/110; PULSE 104; RESP 16; TEMP 36.6; O2SAT 100; BMI 23.3
[2025-06-09 12:52] VITALS: BP 170/104; PULSE 94; O2SAT 99
--- NOTE | 2025-06-09 13:04 | W.ED.WOUNDLC ---
HPI - Wound/Laceration General: Chief Complaint: Wound/Laceration Stated Complaint: Lac on left ankle Time Seen by Provider: 06/09/25 12:44 History of Present Illness: 64-year-old female presents to the emergency department today for complaints of laceration/skin tear to the medial left ankle. Patient reported that she was changing her cat litter box and something fell on her leg. She reported that she recently had a tetanus shot as she was bit by a cat about 2 weeks prior to arrival. Related Data Home Medications ?Medication ?Instructions ?Recorded ?Confirmed latanoprost 0.005 % eye drops 1 drp ophthalmic (eye) DAILY 05/09/25 05/20/25 topiramate 100 mg tablet 100 mg PO BID 05/09/25 05/20/25 Previous Rx's ?Medication ?Instructions ?Recorded albuterol sulfate 2.5 mg/3 mL 2.5 mg (3 mL) inhalation Q4H PRN 10/11/23 (0.083 %) solution for nebulization shortness of breath or wheezing #180 mL albuterol sulfate 90 mcg/actuation 2 puff inhalation Q6H PRN 10/18/23 aerosol inhaler shortness of breath or wheezing #8.5 grams fluticasone fur. 100 mcg-umeclid 1 inh inhalation DAILY #60 ea 02/15/24 62.5 mcg-vilant 25 mcg inhalat.powder (Trelegy Ellipta) cholecalciferol (vitamin D3) 50 2,000 unit PO DAILY #30 tabs 02/20/24 mcg (2,000 unit) tablet prednisone 5 mg tablet 5 mg PO DAILY flare #90 tabs 02/26/25 hydrocodone 5 mg-acetaminophen 325 1 tab PO BID PRN pain (scale score 04/02/25 mg tablet 7-10) Rheumatoid arthritis flare 30 days #60 tabs prednisone 20 mg tablet See Rx Instructions .Route 04/15/25 .COMPLEX #30 tabs isosorbide mononitrate 30 mg 15 mg (1/2 x 30 mg) PO DAILY #90 05/20/25 tablet,extended release 24 hr tabs nitroglycerin 0.4 mg sublingual 0.4 mg sublingual Q5M PRN chest 05/20/25 tablet pain #25 tabs mupirocin 2 % topical ointment 1 applic topical BID #22 grams 06/09/25 (Centany) Allergies Allergy/AdvReac Type Severity Reaction Status Date / Time hydroxychloroquine Allergy Intermediate edema in Verified 05/20/25 14:29 legs and feet acetaminophen Allergy stomach Verified 05/20/25 14:29 pain aspirin (From Percodan) Allergy abdominal Verified 05/20/25 14:29 pain chocolate flavor Allergy hives Verified 05/20/25 14:29 codeine Allergy abdominal Verified 05/20/25 14:29 pain oxycodone (From Percocet) Allergy hallucinati Verified 05/20/25 14:29 ons propoxyphene (From Darvon) Allergy hallucinati Verified 05/20/25 14:29 ons sulfasalazine AdvReac Intermediate hands Verified 05/20/25 14:29 swelling, joints aching, not feel well methotrexate AdvReac nausea, Verified 05/20/25 14:29 hair loss percocet Allergy Rash Uncoded 05/20/25 14:29 PFSH ED PFSH: Medical History (Updated 06/09/25 @ 13:56 by Jaimee Sigala NP) Family history of ischemic heart disease and other diseases of the circulatory system Chronic obstructive pulmonary disease Osteoarthritis History of pericarditis (~2011) Emphysema lung History of pre-eclampsia Scoliosis Gastritis Post-menopausal osteoporosis Encounter for osteoporosis screening in asymptomatic postmenopausal patient Chronic intermittent steroid use Seropositive rheumatoid arthritis of multiple sites Shortness of breath Immunization counseling High risk medication use Rheumatoid arthritis with rheumatoid factor Encounter for screening for other viral diseases Surgical History S/P knee surgery History of repair of hiatal hernia H/O: hysterectomy Hx of cholecystectomy H/O tubal ligation H/O arthroplasty Family History Other CAD (coronary artery disease) Diabetes Hypertension Lung disease Rheumatoid arthritis Stroke Social History Smoking and tobacco/nicotine status: current every day tobacco/nicotine user cigarettes Packs smoked per day: 1 Years cigarettes smoked: 36 [ Other cigarette details: started at age 25] Second hand smoke exposure: Yes Alcohol intake: never Substance/Drug Use: never Lives independently: Yes Household members: none Marital status: Current occupational status: disabled Do you think of yourself as: Straight/Heterosexual Current gender identity: Female Course Vital Signs: Vital signs: Vital Signs Temperature 97.9 F 06/09/25 12:48 Pulse Rate 94 06/09/25 12:52 Respiratory Rate 16 06/09/25 12:48 Blood Pressure 170/104 06/09/25 12:52 Pulse Oximetry 99 06/09/25 12:52 Oxygen Delivery Me thod Room Air 06/09/25 12:52 MDM - Wound/Laceration Medical Decision Making 64-year-old female presents to the emergency department today for skin tear to the left lower leg. Patient reported that she was cleaning her litter box when something fell lacerating/tearing the skin. Patient is on chronic prednisone and has very thin skin. Topical lidocaine applied prior to cleaning. The area was cleansed and Steri-Strips applied. Patient is up-to-date on tetanus shot. She is going to be given a prescription for topical mupirocin ointment and discharged home. Differential Diagnosis Likely laceration, abrasion and avulsion of skin No radiology studies performed this visit Discharge Plan Discharge Patient Disposition: Home Clinical Impression: Skin tear Condition: Stable Prescriptions: New mupirocin [Centany] 2 % ointment 1 applic topical BID Qty: 22 0RF Rx Instructions: Please apply a thin layer twice daily to the affected area. No Action cholecalciferol (vitamin D3) 50 mcg (2,000 unit) tablet 2,000 unit PO DAILY Qty: 30 3RF latanoprost 0.005 % drops 1 drp ophthalmic (eye) DAILY topiramate 100 mg tablet 100 mg PO BID isosorbide mononitrate 30 mg tablet extended release 24 hr 15 mg PO DAILY Qty: 90 3RF nitroglycerin 0.4 mg tablet, sublingual 0.4 mg sublingual Q5M PRN (Reason: chest pain) Qty: 25 2RF Rx Instructions: do not exceed 3 doses per episode albuterol sulfate 2.5 mg /3 mL (0.083 %) solution for nebulization 2.5 mg inhalation Q4H PRN (Reason: shortness of breath or wheezing) Qty: 180 6RF albuterol sulfate 90 mcg/actuation HFA aerosol inhaler 2 puff INHALATION Q6H PRN (Reason: shortness of breath or wheezing) Qty: 8.5 0RF Trelegy Ellipta 100-62.5-25 mcg blister with device 1 inh inhalation DAILY Qty: 60 6RF prednisone 5 mg tablet 5 mg PO DAILY Qty: 90 1RF hydrocodone-acetaminophen 5-325 mg tablet 1 tab PO BID PRN (Reason: pain (scale score 7-10) Rheumatoid arthritis flare) 30 Days Qty: 60 0RF prednisone 20 mg tablet See Rx Instructions .ROUTE .COMPLEX Qty: 30 1RF Dose Instruction: TAKE 2 TABLETS BY MOUTH EVERY DAY for 7 days NEEDED FOR ARTHRITIS FLARE Rx Instructions: TAKE 2 TABLETS BY MOUTH EVERY DAY for 7 days NEEDED FOR ARTHRITIS FLARE Discharge Orders: Discharge ED (Routine); Ordered 06/09/25 Ordered By: Jaimee Sigala Referrals: Yessica Travis MD [Primary Care Provider, Internal Medicine] Patient Instructions: Opioid Safety, Pain Management, Patient Portal & Simona Instructions Print Language: Sudanese Coding Level of Care Code ED Material Specialist for Estiven Faust
== END 2025-06-09 14:16 | disposition home or self-care (01) ==
PROVIDERS: Emergency Provider Nurse Practitioner; PCP Internal Medicine
DX: S91.012A Laceration without foreign body, left ankle, initial encounter (principal); F17.210 Nicotine dependence, cigarettes, uncomplicated; J44.9 Chronic obstructive pulmonary disease, unspecified; W22.8XXA Striking against or struck by other objects, initial encounter
CPT/HCPCS: 99283; J9999

== ENCOUNTER → 2025-06-24 08:01 | Outpatient (BNVA) | payer OTHER, MEDICAID, SELFPAY | PROVIDERS: PCP Internal Medicine; Visit Provider Thoracic Surgery (Cardiothoracic Vascular Surgery) | DX: I96 Gangrene, not elsewhere classified (principal); L97.821 Non-pressure chronic ulcer of other part of left lower leg limited to breakdown of skin | CPT/HCPCS: 97597; 99203; J9999 ==

== ENCOUNTER 2025-06-25 12:49 | Emergency (ER) | payer OTHER, MEDICAID, SELFPAY ==
--- NOTE | 2025-06-25 12:51 | XR_ITS ---
WS: [email or web address] Portable AP upright chest, 06/25/2025 Clinical Data: cp Comparison: Two-view chest, 02/15/2025 Findings: No nodules, masses or effusions are seen. The heart is normal. The pulmonary vascularity is not increased. No pneumonia or pneumothorax is seen. The aortic arch shows mild tortuosity. There are monitor leads on the chest wall. XR/XR chest 1V portable [id number] Impression: Atherosclerosis.
[2025-06-25 12:52] VITALS: BP 167/103; PULSE 98; RESP 18; TEMP 36.8; O2SAT 98; BMI 23.3
--- NOTE | 2025-06-25 12:56 | ECG_ITS ---
[facility]: [facility]25[facility]25 Pat Name: Tari Mendoza Department: Room: Gender: Female Outside Dealer Sales Representative: : 1960 Requested By: Daren Harrison Order Number: [id number] Peace MD: Bunny Pak M.D. Measurements Intervals [place] Rate: 82 P: 62 NM: 125 QRS: -23 QRSD: 82 T: 43 QT: 336 QTc: 395 Interpretive Statements SINUS RHYTHM WITH SINUS ARRHYTHMIA BORDERLINE LEFT AXIS DEVIATION [QRS AXIS < -20] LOW QRS VOLTAGE IN PRECORDIAL LEADS [QRS DEFLECTION < 1.0 mV IN CHEST LEADS] INTERPRETATION BASED ON A DEFAULT AGE OF 40 YEARS Compared to ECG 02/14/2023 09:59:53 No significant changes Electronically Signed On 06-25-2025 21:53:14 PSYCHIATRIC TECH by Bunny Pak M.D. [email or web address]
--- NOTE | 2025-06-25 12:58 | ED_ITS ---
HPI - Chest Pain 2 General: Chief Complaint: Chest Pain Stated Complaint: Rapid Time Seen by Provider: 06/25/25 12:52 Source: patient Mode of arrival: ambulatory Limitations: no limitations History of Present Illness: 64-year-old female states that she has b een having ongoing chest pain for months. States has been intermittent in nature states she has been following with cardiology Dr. Flynn states that they are dealing with insurance to try to get her outpatient studies. States she had went there today to speak to them and was called a rapid response that she is states she had had some pain while she is up there. States her pain is now since resolved denies any shortness of breath denies any nausea denies any worsening from fractures. Related Data Home Medications ?Medication ?Instructions ?Recorded ?Confirmed latanoprost 0.005 % eye drops 1 drp ophthalmic (eye) D AILY 05/09/25 06/25/25 topiramate 100 mg tablet 100 mg PO BID 05/09/2506/25 Previous Rx's ?Medication ?Instructions ?Recorded albuterol sulfate 2.5 mg/3 mL 2.5 mg (3 mL) inhalation Q4H PRN 10/11/23 (0.083 %) solution for nebulization shortness of breat h or wheezing #180 mL albuterol sulfate 90 mcg/actuation 2 puff inhalation Q 6H PRN 10/18/23 aerosol inhaler shortness of breath or wheez ing #8.5 grams fluticasone fur. 100 mcg-umeclid 1 inh inhalation SHIV Y #60 ea 02/15/24 62.5 mcg-vilant 25 mcg inhalat.powder (Trelegy Ellipta) cholecalciferol (vitamin D3) 50 2,000 unit PO DAILY #3 0 tabs 02/20/24 mcg (2,000 unit) tablet prednisone 5 mg tablet 5 mg PO DAILY flare #90 tabs 02/26/25 hydrocodone 5 mg-acetaminophen 325 1 tab PO BID PRN pa in (scale score 04/02/25 mg tablet 7-10) Rheumatoid arthritis f lare 30 days #60 tabs prednisone 20 mg tablet See Rx Instructions .Route 0 04/15/25 .COMPLEX #30 tabs nitroglycerin 0.4 mg sublingual 0.4 mg sublingual Q5M PRN chest 09/29/25 tablet pain #25 tabs mupirocin 2 % topical ointment 1 applic topical BID #2 2 grams 06/09/25 (Centany) Allergies Allergy/AdvReac Type Severity Reaction Status Date / Time hydroxychloroquine Allergy Intermediate edema in Verified 06/25/25 11:53 legs and feet acetaminophen Allergy stomach Verified 06/25/25 11:53 pain aspirin (From Percodan) Allergy abdominal Verified 06/25/25 11:53 pain chocolate flavor Allergy hives Verified 06/25/25 11:53 codeine Allergy abdominal Verified 06/25/25 11:53 pain isosorbide Allergy ADR-Headach Verified 06/25/25 11:53 e oxycodone (From Percocet) Allergy hallucinati Verified 06/25/25 11:53 ons propoxyphene (From Darvon) Allergy hallucinati Verified 06/25/25 11:53 ons sulfasalazine AdvReac Intermediate hands Verified 06/25/25 11:53 swelling, joints aching, not feel well methotrexate AdvReac nausea, Verified 06/25/25 11:53 hair loss percocet Allergy Rash Uncoded 06/25/25 11:53 Review of Systems 2 Card: Reports: chest pain PFSH ED 2 PFSH: Medical History Family history of ischemic heart disease and other diseases of the circulatory system Chronic obstructive pulmonary disease Osteoarthritis History of pericarditis (~2011) Emphysema lung History of pre-eclampsia Scoliosis Gastritis Post-menopausal osteoporosis Encounter for osteoporosis screening in asymptomatic postmenopausal patient Chronic intermittent steroid use Seropositive rheumatoid arthritis of multiple sites Shortness of breath Immunization counseling High risk medication use Rheumatoid arthritis with rheumatoid factor Encounter for screening for other viral diseases Surgical History S/P knee surgery History of repair of hiatal hernia H/O: hysterectomy Hx of cholecystectomy H/O tubal ligation H/O arthroplasty Family History Other CAD (coronary artery disease) Diabetes Hypertension Lung disease Rheumatoid arthritis Stroke Social History Smoking and tobacco/nicotine status: current every day tobacco/nicotine user cigarettes Packs smoked per day: 1 Years cigarettes smoked: 36 [ Other cigarette details: started at age 25] Second hand smoke exposure: Yes Alcohol intake: never Substance/Drug Use: never Lives independently: Yes Household members: none Marital status: Current occupational status: disabled Do you think of yourself as: Straight/Heterosexual Current gender identity: Female Physical Exam 2 Const: COMMON NORMALS: no acute distress, patient oriented x3 and healthy appearing HENMT: COMMON NORMALS: normocephalic and atraumatic HEAD & SCALP: n ormocephalic and atraumatic Neck/C-Spine: COMMON NORMALS: full ROM and supple Chest: COMMONS NORMALS: normal inspection of the chest and normal palpation of entire chest wall Resp: COMMON NORMALS: normal respiratory effort, No retractions, No use of accessory muscles and clear to auscultation bilaterally AUSCULTATION: clear to auscultation bilaterally Cardio: COMMON NORMALS: regular rate, regular rhythm and No murmurs present (Cardio) RATE: regular rate RHYTHM: regular rhythm GI: COMMON NORMALS: Normal to inspection, nondistended, normoactive bowel sounds present, Soft to palpation, non-tender and no masses PALPATION: Yes Soft to palpation Extremity: COMMON NORMALS: normal to inspection and full ROM Neuro: COMMON NORMALS: patient oriented x3, moves all extremities and no focal motor deficits Psych: COMMON NORMALS: mental status grossly normal, Normal thought process present and cooperative THOUGHT PROCESS: Normal thought process present Skin: COMMON NORMALS: no rashes or lesions noted and no wounds GENERAL SKIN EXAM: no rashes or lesions noted Course 2 Vital Signs: Vital signs: Vital Signs Temperature 98.3 F 06/25/25 12:52 Pulse Rate 83 06/25/25 13:54 Respiratory Rate 18 06/25/25 12:52 Blood Pressure 167/103 06/25/25 12:52 Pulse Oximetry 99 06/25/25 13:54 Oxygen Delivery Me thod Room Air 06/25/25 12:52 MDM - Chest Pain Medical Decision Making Patient presents here with chest pains been going on for months. Differential includes pulmonary embolism, ACS. Patient has no shortness of breath. No signs of pulmonary emboli. Her chest pain is atypical and is been going on for months and she has been pain-free here. Her chest x-ray here was interpreted by me showed no acute abnormalities. EKG shows normal sinus rhythm heart rate [address] elevation QRS 82 QTc 375. Her initial troponin here is normal heart score is 2. I feel she is stable for discharge she is to follow-up with cardiology she is return if worsening I did go over all her labs EKG and she understands agrees to plan. Medical Records I reviewed the patient's medical records. Lab Data I reviewed the patient's lab results. 06/25/25 13:02 06/25/25 13:02 Radiology Impressions Chest X-Ray 06/25/25 12:51 Impression: Atherosclerosis. Laboratory Results WBC 10.02 10^3/uL (3.29-11.43) 06/25/25 13:02 RBC 4.03 10^6/uL (3.85-5.65) 06/25/25 13:02 Hgb 13.00 g/dL (11.27-16.99) 06/25/25 13:02 Hct 40.4 % (36-47) 06/25/25 13:02 MCV 100.2 fl (85-98) H 06/25/25 13:02 MCH 32.3 pg (27-33) 06/25/25 13:02 MCHC 32.2 g/dL (30-55) 06/25/25 13:02 RDW 13.2 % (12.1-15.1) 06/25/25 13:02 Plt Count 336 10^3/cmm (157-399) 06/25/25 13:02 MPV 9.8 fL (7.4-10.4) 06/25/25 13:02 Neut % (Auto) 65.1 % 06/25/25 13:02 Lymph % (Auto) 29.6 % 06/25/25 13:02 Dale % (Auto) 4.3 % 06/25/25 13:02 Eos % (Auto) 0.3 % 06/25/25 13:02 Baso % (Auto) 0.2 % 06/25/25 13:02 Neut # (Auto) 6.52 10^3/uL (1.8-7.7) 06/25/25 13:02 Lymph # (Auto) 3.0 10^3/uL (0.8-4.8) 06/25/25 13:02 Dale # (Auto) 0.4 10^3/uL (0.2-0.9) 06/25/25 13:02 Eos # (Auto) 0.0 10^3/uL (0.0-0.8) 06/25/25 13:02 Baso # (Auto) 0.0 10^3/uL (0.0-0.1) 06/25/25 13:02 Nucleated RBC % (auto) 0 % 06/25/25 13:02 Nucleated RBCs # 0.0 /100WBC 06/25/25 13:02 PT 11.60 SECONDS (12.1-14.9) L 06/25/25 13:02 INR 0.79 (0.8-1.2) L 06/25/25 13:02 Sodium 137 mmol/L (136-145) 06/25/25 13:02 Potassium 4.2 mmol/L (3.5-5.1) 06/25/25 13:02 Chloride 101 mmol/L (98-107) 06/25/25 13:02 Carbon Dioxide 25 mmol/L (22-29) 06/25/25 13:02 Anion Gap 15.2 (5-19) 06/25/25 13:02 BUN 6 mg/dL (8-23) L 06/25/25 13:02 Creatinine 0.7 mg/dL (0.5-0.9) 06/25/25 13:02 GFR Calculation 84.8 mL/min (90-130) L 06/25/25 13:02 Glucose 81 mg/dL (65-115) 06/25/25 13:02 Calculated Osmolality 281 mOsm/kg (285-295) L 06/25/25 13:02 Calcium 9.3 mg/dL (8.5-10.5) 06/25/25 13:02 Total Bilirubin 0.2 mg/dL (0.15-1.2) 06/25/25 13:02 AST 17 U/L (0-32) 06/25/25 13:02 ALT 20 U/L (0-33) 06/25/25 13:02 Alkaline Phosphatase 114 U/L (35-105) H 06/25/25 13:02 Troponin T Baseline 10 ng/L (0-10) 06/25/25 13:02 Total Protein 6.4 g/dL (6.6-8.7) L 06/25/25 13:02 Albumin 4.0 g/dL (3.5-5.2) 06/25/25 13:02 Globulin 2.4 g/dL (1.3-4.6) 06/25/25 13:02 Lipase 30 U/L (13-60) 06/25/25 13:02 All radiology interpretation(s) finalized by discharge EKG Data EKG 1: I personally reviewed and interpreted this EKG as follows: EKG interpretation date: 06/25/25 EKG interpretation time: 12:56 Interpretation: nsr hr [address] elevation qrs 82 qtc 375 Discharge Plan Discharge Patient Disposition: Home Clinical Impression: Atypical chest pain Condition: Stable Prescriptions: No Action cholecalciferol (vitamin D3) 50 mcg (2,000 unit) tablet 2,000 unit PO DAILY Qty: 30 3RF latanoprost 0.005 % drops 1 drp ophthalmic (eye) DAILY topiramate 100 mg tablet 100 mg PO BID nitroglycerin 0.4 mg tablet, sublingual 0.4 mg sublingual Q5M PRN (Reason: chest pain) Qty: 25 2RF Rx Instructions: do not exceed 3 doses per episode albuterol sulfate 2.5 mg /3 mL (0.083 %) solution for nebulization 2.5 mg inhalation Q4H PRN (Reason: shortness of breath or wheezing) Qty: 180 6RF albuterol sulfate 90 mcg/actuation HFA aerosol inhaler 2 puff INHALATION Q6H PRN (Reason: shortness of breath or wheezing) Qty: 8.5 0RF Trelegy Ellipta 100-62.5-25 mcg blister with device 1 inh inhalation DAILY Qty: 60 6RF prednisone 5 mg tablet 5 mg PO DAILY Qty: 90 1RF hydrocodone-acetaminophen 5-325 mg tablet 1 tab PO BID PRN (Reason: pain (scale score 7-10) Rheumatoid arthritis flare) 30 Days Qty: 60 0RF prednisone 20 mg tablet See Rx Instructions .ROUTE .COMPLEX Qty: 30 1RF Dose Instruction: TAKE 2 TABLETS BY MOUTH EVERY DAY for 7 days NEEDED FOR ARTHRITIS FLARE Rx Instructions: TAKE 2 TABLETS BY MOUTH EVERY DAY for 7 days NEEDED FOR ARTHRITIS FLARE mupirocin [Centany] 2 % ointment 1 applic topical BID Qty: 22 0RF Rx Instructions: Please apply a thin layer twice daily to the affected area. Discharge Orders: Discharge ED (Routine); Ordered 06/25/25 Ordered By: Daren Harrison Referrals: Yessica Travis MD [Primary Care Provider, Internal Medicine] Florencio Alvarez MD [Physician, Cardiology] - 4-7 days Discharge Diet: Advance as tolerated Discharge Activity: Resume usual activity Patient Instructions: Chest Pain (ED) Print Language: Mozambican Coding Level of Care Code ED Program Project Analyst for Chg Fwd Heart Score HEART Score Components History: Slightly Suspicous EKG: Normal Age: 45-64 yrs Risk Factors: 1 or 2 Risk Factors Troponin: Baseline Trop <16 ng/L HEART Score RESULT HEART Score: 2
--- OUTSIDE RECORDS SUMMARY | 2025-06-25 13:05 | XMS_ITS | Clinical Summary ---
Author Organization [facility] de Address [address] [place] [address] Phone Care Team Providers Care Embedded Systems Software Engineer Name Role Phone Unavailable Primary Care Provider [...]
--- OUTSIDE RECORDS SUMMARY | 2025-06-25 13:05 | XMS_ITS | Encounter Summary ---
Author Organization [facility] Address [address] [place] [address] Care Team Providers Care Ict Analyst Name Role Phone Unavailable Primary Care Provider Unavailabl e Encounter Details Date Type Department Care Team (Late st Contact Info) Description 06/19/2025 External Device Data [facility] ABSTRACTION Provider, Abstract NO ADDRESS ON FILE Social History Tobacco Use Types Packs/Day Years Used Date Smoking Tobacco: Never Assessed Comments Unknown Sex and Gender Information Value Date Recorded Sex Assigned at Not on file Legal Sex Female 9:04 AM CDT Gender Identity Not on file Sexual Orientation Not on file documented as of this encounter Plan of Treatment Upcoming Encounters Date Type Department Care Team (Late st Contact Info) Description 12/31/2025 10:20 AM CDT Office Visit [facility] Rheumatology- Tommy Gonzalez [address] [place] [address] Sarah Parekh MD [address] [place] [id number] documented as of this encounter Visit Diagnoses Not on filedocumented in this encounter
--- OUTSIDE RECORDS SUMMARY | 2025-06-25 13:05 | XMS_ITS | Encounter Summary ---
Author Organization [facility] Address [address] [place] [address] Care Team Providers Care Hanger Off Name Role Phone Unavailable Primary Care Provider [...] Description 12/31/2025 10:20 AM CDT Office Visit [facility] Rheumatology- Tommy Gonzalez [address] [place] [address] Sarah Parekh MD [address] [place] [id number] documented as of this encounter Visit Diagnoses Not on filedocumented in this encounter
--- OUTSIDE RECORDS SUMMARY | 2025-06-25 13:05 | XMS_ITS | Clinical Summary ---
Author Organization [facility] Address [address] [place] [address] Phone Care Team Providers Care Integrated Marketing Intern Name Role Phone Unavailable Primary Care Provider Unavailabl e Encounters Date Type Department Care Team Description 06/19/2025 External Device Data [facility] ABSTRACTION Provider, Abstract 06/19/2025 External Device Data [facility] ABSTRACTION Provider, Abstract 06/11/2025 External Device Data [facility] ABSTRACTION Provider, Abstract 05/07/2025 External Device Data [facility] ABSTRACTION Provider, [...] Description 12/31/2025 10:20 AM CDT Office Visit [facility] Rheumatology- Tommy Humphrey [place] [address] [place] [address] Sarah Parekh MD [address] [place] [address] Health Maintenance Due Date Last Done Comments [...]
[2025-06-25 13:08] LABS: Hematocrit 40.4 % (36-47); Hemoglobin 13.00 g/dL (11.27-16.99); Mean Corpuscular HGB Conc 32.2 g/dL (30-55); Mean Corpuscular Hemoglobin 32.3 pg (27-33); Mean Corpuscular Volume 100.2 fl (85-98); Nucleated Red Blood Cells % 0 %; Platelet Count 336 10^3/cmm (157-399); Red Blood Count 4.03 10^6/uL (3.85-5.65); White Blood Count 10.02 10^3/uL (3.29-11.43)
[2025-06-25 13:31] LABS: Alanine Aminotransferase 20 U/L (0-33); Albumin Level 4.0 g/dL (3.5-5.2); Alkaline Phosphatase 114 U/L (35-105); Anion Gap 15.2 (5-19); Aspartate Amino Transferase 17 U/L (0-32); Blood Urea Nitrogen 6 mg/dL (8-23); Calcium 9.3 mg/dL (8.5-10.5); Carbon Dioxide 25 mmol/L (22-29); Chloride 101 mmol/L (98-107); Creatinine Clr Calc Pharmacy 78.4040; Globulin 2.4 g/dL (1.3-4.6); Glucose 81 mg/dL (65-115); Lipase 30 U/L (13-60); Osmolality Calculated 281 mOsm/kg (285-295); Potassium 4.2 mmol/L (3.5-5.1); Sodium 137 mmol/L (136-145); Total Protein 6.4 g/dL (6.6-8.7); Troponin(5th) Baseline 10 ng/L (0-10)
[2025-06-25 13:54] VITALS: PULSE 83; O2SAT 99
[2025-06-25 14:08] LABS: INR 0.79 (0.8-1.2); Prothrombin Time 11.60 SECONDS (12.1-14.9)
--- NOTE | 2025-06-26 07:42 | DCPLANNER ---
Message sent to Cardiology for referral
== END 2025-06-25 14:00 | disposition home or self-care (01) ==
PROVIDERS: Emergency Provider Emergency Medicine; PCP Internal Medicine
DX: Z79.899 Other long term (current) drug therapy (principal); Z71.85 Encounter for immunization safety counseling; M05.79 Rheumatoid arthritis with rheumatoid factor of multiple sites without organ or systems involvement; Z87.19 Personal history of other diseases of the digestive system; M21.942 Unspecified acquired deformity of hand, left hand; R07.89 Other chest pain; F17.210 Nicotine dependence, cigarettes, uncomplicated
CPT/HCPCS: 36415; 71045; 80053; 83690; 84484; 85025; 85610; 93005; 99214; 99285

== ENCOUNTER → 2025-07-01 08:53 | Outpatient (BNVA) | payer OTHER, MEDICAID, SELFPAY | PROVIDERS: PCP Internal Medicine; Visit Provider Thoracic Surgery (Cardiothoracic Vascular Surgery) | DX: I96 Gangrene, not elsewhere classified (principal); S81.812D Laceration without foreign body, left lower leg, subsequent encounter; W22.8XXD Striking against or struck by other objects, subsequent encounter | CPT/HCPCS: 97597 ==

== ENCOUNTER → 2025-07-08 10:30 | Outpatient (BNVA) | payer OTHER, MEDICAID, SELFPAY | PROVIDERS: PCP Internal Medicine; Visit Provider Thoracic Surgery (Cardiothoracic Vascular Surgery) | DX: I96 Gangrene, not elsewhere classified (principal); S81.812D Laceration without foreign body, left lower leg, subsequent encounter; W22.8XXD Striking against or struck by other objects, subsequent encounter | CPT/HCPCS: 97597; A6212 ==

== ENCOUNTER → 2025-07-15 10:25 | Outpatient (BNVA) | payer OTHER, MEDICAID, SELFPAY | PROVIDERS: PCP Internal Medicine; Visit Provider Thoracic Surgery (Cardiothoracic Vascular Surgery) | DX: I96 Gangrene, not elsewhere classified (principal); S81.812D Laceration without foreign body, left lower leg, subsequent encounter; W22.8XXD Striking against or struck by other objects, subsequent encounter | CPT/HCPCS: 97597; A6212 ==

== ENCOUNTER → 2025-07-24 14:31 | Outpatient (BNVA) | payer OTHER, MEDICAID, SELFPAY | PROVIDERS: PCP Internal Medicine; Visit Provider Thoracic Surgery (Cardiothoracic Vascular Surgery) | DX: I96 Gangrene, not elsewhere classified (principal); L97.821 Non-pressure chronic ulcer of other part of left lower leg limited to breakdown of skin | CPT/HCPCS: 97597; A6212 ==

== ENCOUNTER → 2025-07-29 14:04 | Outpatient (BNVA) | payer OTHER, MEDICAID, SELFPAY | PROVIDERS: PCP Internal Medicine; Visit Provider Internal Medicine Cardiovascular Disease | DX: R07.89 Other chest pain (principal); I10 Essential (primary) hypertension; F17.210 Nicotine dependence, cigarettes, uncomplicated | CPT/HCPCS: 99214 ==

== ENCOUNTER → 2025-08-07 12:46 | Outpatient (BNVA) | payer OTHER, MEDICAID, SELFPAY | PROVIDERS: PCP Internal Medicine; Visit Provider Thoracic Surgery (Cardiothoracic Vascular Surgery) | DX: I96 Gangrene, not elsewhere classified (principal); L97.821 Non-pressure chronic ulcer of other part of left lower leg limited to breakdown of skin | CPT/HCPCS: 97597 ==

== ENCOUNTER → 2025-08-21 10:33 | Outpatient (BNVA) | payer OTHER, MEDICAID, SELFPAY | PROVIDERS: PCP Internal Medicine; Visit Provider Thoracic Surgery (Cardiothoracic Vascular Surgery) | DX: Z09 Encounter for follow-up examination after completed treatment for conditions other than malignant neoplasm (principal); Z87.2 Personal history of diseases of the skin and subcutaneous tissue | CPT/HCPCS: 99212 ==